=== PATIENT | male | born 1970 | race Caucasian/White ===

== ENCOUNTER → 2016-10-13 | Outpatient (CLI) | payer BC ==
[~2016-10-13] MED LIST: AMB5 PO; CMD2 PO; EFFSR75 PO; METF500T PO; OXYC-57 PO; RXC5 PO
== END | disposition home or self-care (01) ==
LOC: C.CTS 13:27
PROVIDERS: ATTEND Orthopaedic Surgery
DX: M19.011 Primary osteoarthritis, right shoulder (principal)

== ENCOUNTER 2016-11-19 08:26 | Inpatient (IN) | payer BC ==
[2016-10-13 11:26] VITALS: BMI 36.0
--- NOTE | 2016-10-13 11:57 | PAT Medication Instructions ---
Service Date October 13, 2016. Current Home Medication List No Active Prescriptions or Reported Meds Medication Instructions For Your Scheduled Surgery - Hold the following medications 48 hours prior to surgery: Metformin If you have any questions please call us at [phone] or [phone] or [phone]
--- NOTE | 2016-10-13 12:16 | DIAGNOSTIC IMAGING REPORT ---
TWO VIEW CHEST CLINICAL HISTORY: Preoperative examination. FINDINGS: PA and lateral chest radiographs are compared to study dated 02/09/2010. The cardiomediastinal silhouette is unremarkable. There are low lung volumes and bibasilar atelectasis. The lungs and pleural spaces are otherwise clear. There is no pneumothorax. The bony thorax appears intact. IMPRESSION: No active disease in the chest. Electronically signed by: Yassine Sutton M.D. 10/13/2016 12:15 PM Dictated Date/Time: 10/13/2016 12:14 PM
[2016-10-13 12:29] LABS: BASO % 0.8 %; BASO ABS # 0.06 K/uL (0-0.2); COMPLETE YES; EOS % 4.2 %; HEMATOCRIT 44.8 % (42-52); IG% 0.7 %; LYMPH % 28.6 %; LYMPH ABS # 2.03 K/uL (1.2-3.4); MEAN CELL VOLUME 85.5 fL (80-100); MEAN CORPUSCULAR HEMOGLOBIN 28.8 pg (25-34); MEAN CORPUSCULAR HGB CONC 33.7 g/dl (32-36); MEAN PLATELET VOLUME 10.5 fL (7.4-10.4); MONO % 11.4 %; NEUT % 54.3 %; PLATELET COUNT 227 K/uL (130-400); RED BLOOD COUNT 5.24 M/uL (4.7-6.1)
[2016-10-13 12:39] LABS: URINE APPEARANCE CLEAR (CLEAR); URINE BILIRUBIN NEG (NEG); URINE COLOR YELLOW; URINE NITRITE NEG (NEG); URINE SPECIFIC GRAVITY 1.023 (1.000-1.030); UROBILINOGEN NEG (NEG)
[2016-10-13 12:45] LABS: INR 0.9 (0.9-1.1); PROTHROMBIN TIME (PATIENT) 9.8 SECONDS (9.0-12.0)
[2016-10-13 12:56] LABS: MANUAL MICROSCOPIC REQUIRED? NO; REVIEW REQ? NO
[2016-10-13 12:57] LABS: CALCIUM 8.5 mg/dl (8.5-10.1); CREATININE 0.88 mg/dl (0.60-1.40); POTASSIUM 4.2 mmol/L (3.5-5.1)
[~2016-11-19] VITALS: Ht 177.8 cm; Wt 115.7 kg
[2016-11-19] VITALS (9 sets, daily range): BP systolic 130–148; BP diastolic 76–99; PULSE 60–80; TEMP 36.4–36.7; O2SAT 90–96; Ht 177.8 cm; Wt 115.7 kg
--- NOTE | 2016-11-19 06:42 | History & Physical Bridge Note ---
H&P Re-Evaluation Bridge Note: I have examined the patient, reviewed the History & Physical and in the interval since the performance of the History & Physical I have noted the following changes of clinical significance: No changes noted
--- NOTE | 2016-11-19 06:43 | History and Physical ---
History & Physical Date Nov 19, 2016. Chief Complaint Osteoarthritis Right Shoulder History of Present Illness The patient is a 46 year old male with complaints of chronic Right shoulder pain Additional History Hepatic Disease: No Endocrine Disorder: No Kidney Disease: No Hypertension: No Heart Disease: No Bleeding Tendencies: No Infectious Diseases: No Allergies Coded Allergies: Penicillins (Verified Allergy, Intermediate, HIVES, 10/13/16) Home Medications Scheduled Metformin Hcl (Glucophage), 500 MG PO BID Physical Examination Skin: warm/dry, no rash Eyes: normal inspection, EOMI, sclerae normal ENT: normal ENT inspection, pharynx normal Head: normocephalic, atraumatic Neck: supple, no adenopathy, trachea midline Respiratory/Chest: lungs clear, normal breath sounds, no respiratory distress Cardiovascular: regular rate, rhythm, no edema, no murmur Abdomen / GI: normal bowel sounds, non tender Back: normal inspection Extremities: normal inspection, normal range of motion Neurologic/Psych: no motor/sensory deficits, alert, normal reflexes, oriented x 3 Diagnosis Osteoarthritis R shoulder Plan of Treatment Right Total Shoulder
[~2016-11-19 08:26] MED LIST changes: +ACETAMINOPHEN 500 MG TAB PO SCH; -AMB5 PO; -CMD2 PO; -EFFSR75 PO; +FAMOTIDINE 20 MG TAB PO SCH; +GABAPENTIN 300 MG CAP PO SCH; +LACTATED RINGER'S 1000ML 1,000 ML IV SCH; +LACTATED RINGER'S 1000ML IV SCH; -OXYC-57 PO; +ROPIVACAINE 0.5% 5 MG/ML 30 ML VIAL ONE; +ROPIVACAINE 5MG/ML 30 ML 150 MG, BUPIVACAINE/EPINEPHR 0.5% MPF 30 ML, KETOROLAC TROMETH... INFIL SCH; -RXC5 PO; +VANCOMYCIN INJ 1,700 MG in SODIUM CHLORIDE 0.9% 500ML 500 ML IV SCH
[2016-11-19] MEDS ORDERED: ROCURONIUM BROMIDE 10 MG/ML 5 ML VIAL ONE (09:45)
[2016-11-19] MEDS ORDERED: ONDANSETRON INJ 2 MG/ML 2 ML VIAL ONE ×2 (09:45→11:20)
[2016-11-19] MEDS ORDERED: DEXAMETHASONE SOD INJ 4 MG/ML VIAL ONE (09:45)
[2016-11-19] MEDS ORDERED: LIDOCAINE HCL 2% 2 ML VIAL (20MG/ML) ONE (09:45)
[2016-11-19] MEDS ORDERED: SUCCINYLCHOLINE CHLORIDE 20 MG/ML 10 ML VIAL IV ONE (09:45)
[2016-11-19] MEDS ORDERED: PROPOFOL IV EMULSION 10 MG/ML 20 ML VIAL IV ONE (09:45)
[2016-11-19] MEDS ORDERED: MIDAZOLAM HCL 1 MG/ML 2ML VIAL ONE (09:46)
[2016-11-19] MEDS ORDERED: FENTANYL CITRATE INJ 50 MCG/1 ML 2 ML VIAL ONE ×3 (09:46→12:20)
[2016-11-19] MEDS ORDERED: BACITRACIN 50000 UNIT VIAL ONE (09:55)
[2016-11-19] MEDS ORDERED: ORTHO JOINT ANESTHETIC ONE (09:55)
[2016-11-19] MEDS: TRANEXAMIC ACID INJ 1,000 MG in SODIUM CHLORIDE 0.9% 100ML 100 ML IV SCH ×2 (10:30→15:58)
[2016-11-19] MEDS ORDERED: GLYCOPYRROLATE INJ 0.2 MG/ML VIAL ONE (11:15)
[2016-11-19] MEDS ORDERED: NEOSTIGMINE METHYLSULFATE 1 MG/ML 10ML VIAL ONE (11:15)
[2016-11-19] MEDS ORDERED: DexMEDEtomidine HCL 100 MCG/ML 2ML VIAL IV ONE (11:41)
[2016-11-19] MEDS ORDERED: EpHEDrine SULFATE 50MG/5ML SYR ONE (12:13)
--- NOTE | 2016-11-19 12:52 | [facility] Post Operative Brief Note ---
Immediate Operative Summary Operative Date Nov 19, 2016. Pre-Operative Diagnosis Osteoarthritis Right Shoulder Post-Operative Diagnosis Osteoarthritis Right Shoulder Procedure(s) Performed Right Total Shoulder ARthroplasty Cemented Surgeon Dr. Ashwin Crane Store Consultant Surgeon(s) Jamie Jin PA-C Estimated Blood Loss 350 mL Findings as above Specimens Permanent specimen A: Right humeral head Complication(s) None Disposition Recovery Room / PACU
[2016-11-19] MEDS ORDERED: MAGNESIUM HYDROXIDE SUSP 30 ML UDC PO PRN (13:00)
[2016-11-19] MEDS ORDERED: BISACODYL 10 MG SUPP PR PRN (13:00)
[2016-11-19] MEDS ORDERED: NALOXONE HCL 0.4 MG/1 ML VIAL/CARP IV PRN (13:00)
[2016-11-19] MEDS ORDERED: MoRPHine SULFATE 2 MG/ML CARP IV PRN (13:00)
[2016-11-19] MEDS ORDERED: METOCLOPRAMIDE HCL INJ 5 MG/ML 2 ML VIAL IV PRN (13:00)
[2016-11-19] MEDS ORDERED: OXYCODONE HCL IR 5 MG TAB (IMMEDIATE RELEASE) PO PRN (13:00)
[2016-11-19] MEDS ORDERED: SOD PHOSPHATE/SOD BIPHOSPHATE ENEMA 132 ML BTL PR PRN (13:00)
[2016-11-19] MEDS ORDERED: ONDANSETRON INJ 2 MG/ML 2 ML VIAL IV PRN (13:00)
[2016-11-19] MEDS ORDERED: NURSING VERBAL MED ORDER ONE (14:15)
--- NOTE | 2016-11-19 14:29 | DIAGNOSTIC IMAGING REPORT ---
RIGHT SHOULDER MIN 2 VIEWS ROUTINE CLINICAL HISTORY: Postoperative evaluation of the right shoulder. COMPARISON: CT of the right shoulder October 13, 2016. FINDINGS: Alignment of the right shoulder arthroplasty is anatomic. There is no periprosthetic fracture or unexpected radiopaque foreign body. Surgical drain is in place. IMPRESSION: Expected findings following right shoulder arthroplasty. Electronically signed by: Stone Guevara M.D. 11/19/2016 2:28 PM Dictated Date/Time: 11/19/2016 2:27 PM
--- NOTE | 2016-11-19 14:30 | Anesthesiology Progress Note ---
Anesthesia Post Op Note Date & Time Nov 19, 2016 at 14:28 Vital Signs Pain Intensity: 0 Vital Signs Past 12 Hours Date Time Temp Pulse Resp B/P (MAP) Pulse Ox O2 Delivery O2 Flow Rate FiO2 11/19/16 14:20 55 16 126/72 95 Oxymask 3 11/19/16 14:10 56 16 131/67 93 Oxymask 3 11/19/16 14:00 65 16 123/70 96 Oxymask 3 11/19/16 13:50 36.2 63 16 128/70 98 Oxymask 3 11/19/16 13:40 65 16 130/84 98 Oxymask 10 11/19/16 13:30 54 16 152/82 96 Oxymask 10 11/19/16 13:20 58 17 113/64 94 Oxymask 10 11/19/16 13:14 36.1 52 17 142/65 97 Oxymask 10 11/19/16 08:53 36.6 67 18 148/94 93 Room Air 11/19/16 08:42 36.6 67 18 148/94 Notes Mental Status: alert / awake / arousable, participated in evaluation Pt Amnestic to Procedure: Yes Nausea / Vomiting: adequately controlled Pain: adequately controlled Airway Patency, RR, SpO2: stable & adequate BP & HR: stable & adequate, see Notes Hydration State: stable & adequate Anesthetic Complications: no major complications apparent Patient noted to have several abnormal beats seen on monitor. 12 lead ECG failed to show any abnormality as he had gone back to sinus rhythm when it was taken. I called Dr. Day with cardiology and stated it was likely a blocked PAC. He stated he would fully consult on the patient and would alert attending surgeon Dr. Crane. Patient will be transferred to telemetry unit. He is conversant and without pain.
--- NOTE | 2016-11-19 14:37 | Cardiology Consultation ---
Cardiology Consultation Requesting Physician: Emily Attending Professional Healthcare Representative: Shay History of Present Illness Patient is a 46 year old male post-op R shoulder arthroplasty. Surgery unremarkable. In PACU, patient had reported dropped beats. Called by anesthesiologist. Strips reviewed showing blocked PAC's and a possible run of atrial bigeminy with block. No sign of AV zach block. Pt still sedated but comfortable. Denies complaints. Remainder of history obtained by review of medical records. History Past Medical History: osteoarthritis Past Surgical History: B/L knee arthroplasty Social History: Denies tobacco use. Social alcohol. No recreational drug use. Single Family History: non on file Past Medical/Surgical History Problem List: Medical Problems: (1) Osteoarthritis of shoulder Review Of Systems General: The patient denies weight change, night sweats, fever, chills. Head: The patient denies headache and prior head trauma. Cardiovascular: The patient denies chest pain or chest discomfort, dyspnea on exertion, palpitations, PND, orthopnea, edema, spontaneous shortness of breath, syncope and near syncope. Pulmonary: The patient denies cough, wheeze, pleurisy, hemoptysis, sputum, and excessive snoring. Gastrointestinal: The patient denies nausea, vomiting, diarrhea, constipation, bloating, hematemesis, hematochezia, and abdominal pain. Skin: The patient denies diaphoresis and rash. Musculoskeletal: The patient denies joint pain, joint swelling, myalgia, back pain, neck pain and prior injuries. Neurological: The patient denies prior stroke and seizures Allergies Coded Allergies: Penicillins (Verified Allergy, Intermediate, HIVES, 11/19/16) Medications Reported Home Medications Medications Dose Route/Sig Max Daily Dose Days Date Category Dose Instructions Glucophage (Metformin Hcl) 500 Mg Tab 500 Mg PO BID 10/13/16 Reported PATIENT HAS NOT STARTED YET OF 10/13/16 Physical Exam Vital Signs (Last 8hrs): Last 8 Hrs Date Time Temp Pulse Resp B/P (MAP) Pulse Ox O2 Delivery O2 Flow Rate FiO2 11/19/16 14:20 55 16 126/72 95 Oxymask 3 11/19/16 14:10 56 16 131/67 93 Oxymask 3 11/19/16 14:00 65 16 123/70 96 Oxymask 3 11/19/16 13:50 36.2 63 16 128/70 98 Oxymask 3 11/19/16 13:40 65 16 130/84 98 Oxymask 10 11/19/16 13:30 54 16 152/82 96 Oxymask 10 11/19/16 13:20 58 17 113/64 94 Oxymask 10 11/19/16 13:14 36.1 52 17 142/65 97 Oxymask 10 11/19/16 08:53 36.6 67 18 148/94 93 Room Air 11/19/16 08:42 36.6 67 18 148/94 General Appearance: Lethargic but appropriately responsive. NAD. Head: Normocephalic Atraumatic. Eyes: PERRLA, EOMI, conjunctiva and sclera clear Neck: Supple. No carotid bruits noted. No JVD. No HJD. Respiratory: Breath sounds clear to auscultation bilaterally. No w/r/r. Cardiovascular: Reg rate and rhythm. S1 and S2 noted. No murmurs, rubs, gallops. PMI non displace. Abdomen: Normal bowel sounds, soft nontender. no abdominal bruits. Extremities: No edema, no clubbing or cyanosis. distal pulses 2/4 bilaterally. Neuro: No focal deficits. Psychiatric: Normal affect. Data Last 24 Hours Test 11/19/16 09:08 Bedside Glucose 117 mg/dl Imaging: EKG: Telemetry reviewed: Assessment & Plan 1. Frequent atrial ectopy with block s/p general anesthesia likely benign, no ruperto AV zach block will check blood work and monitor on tele overnight no murmur on exam, can complete an echo as an outpatient no medications will likely d/c in AM with follow up with PCP for further eval
[2016-11-19] MEDS: KETOROLAC TROMETHAMINE 30 MG/ML VIAL IV. SCH ×2 (16:05→21:16)
[2016-11-19] MEDS: POTASSIUM CHLORIDE INJ 10 MEQ in SODIUM CHLORIDE 0.9% 1000ML 1,000 ML IV SCH (16:05)
[2016-11-19 16:12] LABS: BUN/CREATININE RATIO 14.4 (10-20); CALCIUM 8.4 mg/dl (8.5-10.1); CREATININE 0.88 mg/dl (0.60-1.40); POTASSIUM 4.1 mmol/L (3.5-5.1)
[2016-11-19] MEDS: ACETAMINOPHEN IV 1,000 MG in EMPTY BAG 0 ML IV SCH (16:59)
[2016-11-19] MEDS ORDERED: SENNA 8.6 MG TAB PO SCH (21:00)
[2016-11-19] MEDS ORDERED: VANCOMYCIN INJ 1,700 MG in SODIUM CHLORIDE 0.9% 500ML 500 ML IV SCH (21:00)
[2016-11-19] MEDS: DOCUSATE SODIUM 100 MG CAP PO SCH (21:16)
[2016-11-20] MEDS: ACETAMINOPHEN IV 1,000 MG in EMPTY BAG 0 ML IV SCH ×2 (01:14→08:06)
[2016-11-20 04:00] VITALS: BP 130/85; PULSE 70; TEMP 37.1; O2SAT 93
[2016-11-20] MEDS: KETOROLAC TROMETHAMINE 30 MG/ML VIAL IV. SCH (04:01)
[2016-11-20] MEDS: POTASSIUM CHLORIDE INJ 10 MEQ in SODIUM CHLORIDE 0.9% 1000ML 1,000 ML IV SCH (04:22)
[2016-11-20 06:42] LABS: HEMATOCRIT 38.3 % (42-52); MEAN CELL VOLUME 83.8 fL (80-100); MEAN CORPUSCULAR HEMOGLOBIN 28.2 pg (25-34); MEAN CORPUSCULAR HGB CONC 33.7 g/dl (32-36); MEAN PLATELET VOLUME 10.2 fL (7.4-10.4); PLATELET COUNT 178 K/uL (130-400); RED BLOOD COUNT 4.57 M/uL (4.7-6.1)
[2016-11-20 07:17] LABS: BUN/CREATININE RATIO 15.7 (10-20); CALCIUM 8.3 mg/dl (8.5-10.1); CREATININE 0.91 mg/dl (0.60-1.40); POTASSIUM 3.7 mmol/L (3.5-5.1)
[2016-11-20] MEDS ORDERED: METFORMIN HCL 500 MG TAB PO SCH (07:30)
[2016-11-20 07:36] VITALS: BP 133/90; PULSE 71; TEMP 37.2; O2SAT 91
[2016-11-20] MEDS: DOCUSATE SODIUM 100 MG CAP PO SCH (08:06)
[2016-11-20] MEDS ORDERED: PANTOprazole SOD 40 MG TAB PO SCH (09:00)
--- NOTE | 2016-11-20 09:04 | Orthopedic Progress Note ---
Orthopedic Progress Note Date of Service Nov 20, 2016. Subjective Post OP Day: 1 Reports: feeling well Additional Notes: Seen and examined at bedside. Did well with therapy, Shoulder is sore. Ready for discharge Objective dressing C/D/I, A&O x3 Date Time Temp Pulse Resp B/P (MAP) Pulse Ox O2 Delivery O2 Flow Rate FiO2 11/20/16 07:36 37.2 71 19 133/90 (104) 91 Room Air 11/20/16 04:00 Room Air 11/20/16 04:00 37.1 70 24 130/85 (100) 93 Room Air 11/20/16 00:00 Room Air 11/19/16 23:55 36.7 74 16 141/79 (99) 90 Room Air 11/19/16 20:00 Room Air 11/19/16 19:37 36.7 60 20 142/94 (110) 95 Nasal Cannula 2.0 11/19/16 18:12 76 137/93 (108) 95 Room Air 11/19/16 16:34 78 18 140/99 (113) 96 Nasal Cannula 2.0 11/19/16 15:32 36.6 63 18 130/82 95 Diffusion Mask 3.0 11/19/16 15:30 95 Diffusion Mask 3.0 11/19/16 15:00 61 18 128/77 95 Oxymask 3 11/19/16 14:45 56 18 133/74 95 Oxymask 3 11/19/16 14:30 36.3 61 18 129/78 95 Oxymask 3 11/19/16 14:20 55 16 126/72 95 Oxymask 3 11/19/16 14:10 56 16 131/67 93 Oxymask 3 11/19/16 14:00 65 16 123/70 96 Oxymask 3 11/19/16 13:50 36.2 63 16 128/70 98 Oxymask 3 11/19/16 13:40 65 16 130/84 98 Oxymask 10 11/19/16 13:30 54 16 152/82 96 Oxymask 10 11/19/16 13:20 58 17 113/64 94 Oxymask 10 11/19/16 13:14 36.1 52 17 142/65 97 Oxymask 10 Laboratory Results 24 Hours: Test 11/20/16 06:30 Hematocrit 38.3 % Hemoglobin 12.9 g/dL Assessment & Plan Assessment: S/P R TSA Plan: 1. Oxycodone for pain 2. D/C to home today
[2016-11-20] MEDS ORDERED: RXC5 PO (09:05)
--- NOTE | 2016-11-20 09:06 | Discharge Instructions ---
Discharge Instructions Date of Service Nov 20, 2016. Admission Reason for Admission: Right Shoulder Degenerative Joint Disease Discharge Discharge Diagnosis / Problem: Right Total Shoulder Discharge Goals Goal(s): Decrease discomfort, Improve function Activity Recommendations Activity Limitations: as noted below Shower/Bathe: may shower/bathe in 3 days . Instructions / Follow-Up Instructions / Follow-Up Activity and Therapy Recommendations: * Wear your sling for 3 weeks, unless otherwise instructed. You may remove your sling to shower and to dress, but otherwise, you should be in your sling at all times, including while sleeping * The shoulder replacement is very stable and you can use your hand while in the sling * Physical Therapy should start about 3-5 days from your day of surgery. Therapy will last about 8-12 weeks * You were shown a series of exercises in the hospital. Do these exercises daily including the exercises you were shown in physical therapy. Medications: * Narcotic You will likely be sent home from the hospital with a prescription for the narcotic pain medication that worked best throughout your stay. * Other medications may be prescribed for specific circumstances. If you have any questions, please call the office at . * Resume previous home medications unless otherwise instructed Dressing Care: You will likely have a Prineo dressing covering your incision. This looks like a glued on clear mesh dressing. Do not remove this dressing until you follow- up in my office in 2-3 weeks. Its pretty hard to peel it off. You may leave the Prineo dressing uncovered or cover it if it is draining a little bit. No further dressing care is required Showering: You may shower 3 days from the day of surgery. Leave the Prineo dressing intact and let the soapy shower water run over it. Do not scrub or soak the dressing or the incision. Things To Watch For: * Drainage from the incision site that occurs more than one week after your surgery. * Increased redness at the incision site. * Fever above 102 degrees Fahrenheit. * Unusual chest pain or shortness of breath. * Call [facility] at with any of the above problems Follow-Up Visit: Follow-up with Dr. Crane 2-3 weeks after your day of surgery. An appointment was probably scheduled when you signed-up for surgery in the office. If you have any questions call Office Instructions: More detailed instructions as well as Frequently Asked Questions were provided in a folder by our office when you signed-up for surgery. Please review these instructions when you get home. If you have any further questions or concerns, please feel free to call the office at [phone] Current Hospital Diet Patient's current hospital diet: Diabetes Type 2 Diet Discharge Diet Recommended Diet: Diabetes Type 2 Diet Procedures Procedures Performed: Right Total Shoulder ARthroplasty Cemented Pending Studies Studies pending at discharge: no Medical Emergencies . Who to Call and When: Medical Emergencies: If at any time you feel your situation is an emergency, please call 911 immediately. . Non-Emergent Contact Non-Emergency issues call your: Surgeon Call Non-Emergent contact if: wound has increased drainage, wound has increased redness . "Provider Documentation" section prepared by Calos Crane. . VTE Core Measure Inpt VTE Proph given/why not?: Treatment not indicated
[2016-11-20 09:56] VITALS: BP 133/90; PULSE 71; TEMP 37.2; O2SAT 91
--- NOTE | 2016-12-01 12:56 | OPERATIVE REPORT ---
PREOPERATIVE DIAGNOSIS: Primary osteoarthritis to the right shoulder POSTOPERATIVE DIAGNOSIS: Same. PROCEDURE: Right total shoulder arthroplasty. SURGEON: Dr. Calos Crane. MANAGER CODING: Baron Jin PA-C whose assistance was necessary for positioning of the arm and help with instrumentation. ANESTHESIA: General with right interscalene nerve block. COMPLICATIONS: None. CONDITION: Stable to PACU. IMPLANTS USED: Biomet Comprehensive right total shoulder arthroplasty system with a size medium glenoid with a Regenerex Peg, a size 17 mini press fit stem and a 50 x 21 mm eccentric humeral head. The glenoid was cemented with Palacos G cement. INDICATIONS: Yousuf is a pleasant 46-year-old male who presented to my office with chronic right shoulder pain. X-rays and clinical examination were diagnostic for primary osteoarthritis of the right shoulder. After failing conservative treatment he elected to undergo a right total shoulder arthroplasty. On November 19, 2016 he arrived at [facility] for the above procedure. He was seen in the preoperative holding area and the operative extremity was identified and signed. He was then given a preoperative antibiotic and a right interscalene nerve block. He was taken back to the operating room and laid on the table in supine position and put under general anesthesia. He was then put into the beach chair position. The right shoulder was prepped and draped in sterile fashion and a timeout was done. The patient and operative extremity were properly identified. A deltopectoral approach was used. Dissection was taken down through the fascia and the anterior shoulder was exposed. The long head of the biceps tendon was tenodesed to the upper border of the pec major and the subscapularis was tenotomized off the lesser tuberosity with a centimeter of cuff tissue remaining. The proximal humerus was then exposed. A reamer was sent down the center of the humeral canal. Sequential reaming up to a size 17 reamer was done. Off that reamer a proximal humeral resection guide was placed and the proximal humerus was resected at 135 degrees of inclination and 30 degrees of retroversion. Time was then spent removing inferior osteophytes. The glenoid was then exposed. Time was spent doing an anterior capsular labral release but the posterior labrum was left intact. The Biomet signature guide was then snapped onto the anterior aspect of the glenoid. A guide pin was then placed in the total shoulder arthroplasty hole. The glenoid was then eccentrically reamed. The central boss was then reamed followed by the three peripheral peg holes. A trial medium glenoid was used and seemed to be of good fit. The final size medium glenoid was then cemented in place with Palacos G cement. The proximal humerus was once again exposed. Sequential broaching up to a size 17 broach was done. A trial 50 x 21 mm eccentric head was used. The shoulder was brought through a full range of motion and felt to be stable. The trials were removed. The final size 17 mini stem was then impacted into place and a size 50 x 21 eccentric head was placed on the humeral stem. The shoulder was reduced and brought through a full range of motion. The surrounding soft tissues were then injected with 100 cc of an orthopedic pain control cocktail. The joint was then irrigated with 3 liters of normal saline solution and Bacitracin. The subscapularis was then tenodesed back to the lesser tuberosity with transosseous fibers wires and [id number] sutures. Two sutures were placed in the lateral rotator interval. The axillary nerve was then palpated. The wound was once again irrigated and a drain was placed. The skin was closed with 3-0 Vicryl and a 3-0 V-Loc suture and Prineo dressing. He was then placed in a soft dressing and regular arm sling. He was then transferred to a [facility] and taken to the post-anesthesia care unit in stable condition. He tolerated the procedure well.
== END 2016-11-20 11:35 | disposition home or self-care (01) | DRG 483 ==
LOC: C.ACU 08:26 → C.2E 12:52 → CANRESERV 13:49 → ENRESERV 13:49 → EDBEDREQSVC 14:21 → EDBEDREQ 14:21 → CMPBEDREQ 14:22 → CANBEDREQ 14:28 → ENRESERV 14:44 → CANRESERV 14:44 → ENRESERV 14:49
PROVIDERS: ADMIT Orthopaedic Surgery; ATTEND Orthopaedic Surgery
PROC: 0RRJ00Z Replacement of Right Shoulder Joint with Reverse Ball and Socket Synthetic Substitute, Open Approach (ICD-10-PCS; principal; 2016-11-19 11:00)
DX: M19.011 Primary osteoarthritis, right shoulder (principal)

== ENCOUNTER 2017-08-06 07:32 | Inpatient (IN) | payer BC, OTHER ==
[~2017-08-06] VITALS: Ht 177.8 cm; Wt 98.1 kg
[2017-08-06] VITALS (9 sets, daily range): BP systolic 130–165; BP diastolic 76–104; PULSE 60–77; TEMP 36.5–37.1; O2SAT 92–100; Ht 177.8 cm; Wt 98.1 kg
[~2017-08-06 07:32] MED LIST changes: -ACETAMINOPHEN 500 MG TAB PO SCH; -FAMOTIDINE 20 MG TAB PO SCH; -GABAPENTIN 300 MG CAP PO SCH; -LACTATED RINGER'S 1000ML 1,000 ML IV SCH; -LACTATED RINGER'S 1000ML IV SCH; -ROPIVACAINE 0.5% 5 MG/ML 30 ML VIAL ONE; -ROPIVACAINE 5MG/ML 30 ML 150 MG, BUPIVACAINE/EPINEPHR 0.5% MPF 30 ML, KETOROLAC TROMETH... INFIL SCH; +RXC5 PO; -VANCOMYCIN INJ 1,700 MG in SODIUM CHLORIDE 0.9% 500ML 500 ML IV SCH
[2017-08-06] MEDS ORDERED: KETOROLAC TROMETHAMINE 30 MG/ML VIAL IV STA (07:39)
[2017-08-06] MEDS ORDERED: SODIUM CHLORIDE 0.9% 1000ML 1,000 ML IV STA (07:39)
[2017-08-06] MEDS ORDERED: ONDANSETRON INJ 2 MG/ML 2 ML VIAL IV STA (07:39)
--- NOTE | 2017-08-06 07:46 | EMERGENCY ROOM VISIT NOTE ---
History First contact with patient: 07:36 Chief Complaint: KIDNEY STONE Stated Complaint: POSSIBLE KIDNEY STONE History of Present Illness The patient is a 46 year old male who presents to the Emergency Room via private vehicle accompanied by female with complaints of "kidney stone". The patient states that he has a history of stones. He states that this past Tuesday he began with left flank pain. He was then seen at [facility]. He was diagnosed with a 5 mm stone per patient. He notes he was given Toradol at that time which alleviated his pain. He notes that he was discharged home with the expectation that he revealed to pass the stone. He states that unfortunately the pain has significantly worsened. Around 3 AM this morning he took Ledbetter and ibuprofen. These were of minimal relief. He rates the pain as a 10/10. It is in the left flank. It feels similar to previous stones. Review of Systems A complete 10-point Review of Systems was discussed with the patient, with pertinent positives and negatives listed in the History of Present Illness. All remaining Review of Systems questions can be considered negative unless otherwise specified. Past Medical/Surgical History Medical Problems: (1) Osteoarthritis of shoulder Social History Smoking Status: Former Smoker Current/Historical Medications Scheduled Metformin Hcl (Glucophage), 500 MG PO BID Scheduled PRN Oxycodone HCl (Oxycodone HCl), 5-10 MG PO Q4H PRN for Pain Physical Exam Vital Signs Date Time Temp Pulse Resp B/P (MAP) Pulse Ox O2 Delivery O2 Flow Rate FiO2 08/06/17 08:19 69 24 160/98 100 08/06/17 07:48 94 08/06/17 07:38 37.0 106 18 198/136 97 Room Air Physical Exam VITAL SIGNS - Vital signs and nursing notes were reviewed. Stable. Tachycardic and hypertensive. GENERAL -46-year-old male appearing his stated age who is in no acute distress but does appear to be in pain, and is pacing throughout the exam room. Communicates well with provider and answers questions appropriately. SKIN - Without rashes. No petechial rashes. HEAD - NC/AT. EYES - PERRL with EOMI bilaterally. Sclera anicteric. EARS - No deformities of external structures noted on gross examination bilaterally. NOSE - Midline and without cyanosis. No epistaxis or purulent drainage noted. MOUTH/OROPHARYNX - Without perioral cyanosis. LUNGS - Chest wall symmetric without accessory muscle use, intercostals retractions, or central cyanosis. Normal vesicular breath sounds CTA B/L. No wheezes, rales, or rhonchi appreciated. CARDIAC - RRR with S1/S2. No murmur, rubs, or gallops appreciated. ABDOMEN - Abdominal contour normal without pulsations or visible masses. BS normoactive all four quadrants. No tenderness, palpable masses, hepatosplenomegaly, or ascites noted. Left CVA tenderness noted. EXTREMITIES - No clubbing or peripheral cyanosis. No pretibial edema present. NEUROLOGIC - Cranial nerves II through XII grossly intact. PSYCH - A&O, and cooperates fully with examiner. Pt is very pleasant and interacts well with examiner. Medical Decision & Procedures ER Provider Diagnostic Interpretation: KUB CLINICAL HISTORY: L flank pain, known 5mm stone COMPARISON STUDY: No previous studies for comparison. FINDINGS: Nonobstructive bowel pattern. Bilateral pelvic calcifications the bulk of which are most likely vascular. Renal shadows are obscured by overlying bowel content. IMPRESSION: Multiple pelvic calcifications bilaterally. I cannot exclude a distal ureteral calculus, although the bulk are most likely vascular. Nonobstructive bowel pattern The above report was generated using voice recognition software. It may contain grammatical, syntax or spelling errors. Electronically signed by: Jevon Granados M.D. 08/06/2017 8:04 AM Dictated Date/Time: 08/06/2017 8:03 AM (RENAL)RETROPERITON COMP HISTORY: Pain L flank pain, known 5mm stone COMPARISON: None. FINDINGS: Right kidney: Maximum dimension 13.7 cm. No evidence for hydronephrosis. Normal corticomedullary differentiation and cortical thickness. Left kidney: Mild left renal hydronephrosis. Trace left renal perinephric fluid. Possible nonobstructing calcification upper pole. Normal corticomedullary differentiation and cortical thickness. Bladder: No bladder wall thickening. The right ureteral jets were identified. IMPRESSION: 1. Mild left hydroureteronephrosis with a trace amount of perinephric fluid. 2. Nonobstructing upper pole renal calcification. 3. Normal right kidney. The above report was generated using voice recognition software. It may contain grammatical, syntax or spelling errors. Electronically signed by: Jevon Granados M.D. 08/06/2017 8:22 AM Dictated Date/Time: 08/06/2017 8:20 AM ABD/PELVIS WITHOUT FOR STONE CT DOSE: 1845.33 mGy.cm HISTORY: Pain L flank pain TECHNIQUE: Multiaxial CT images of the abdomen and pelvis were performed without the use of intravenous and oral contrast according to the standard department stone protocol. A dose lowering technique was utilized adhering to the principles of ALARA. COMPARISON STUDY: None. FINDINGS: Minimal dependent basilar atelectasis. Configuration of liver is unremarkable. Gallbladder is negative for distention. Right kidney is unremarkable. Nonobstructing cortical 3 mm calcification mid pole. Left kidney shows moderate hydroureteronephrosis. There is perinephric as well as periureteral infiltrative change. 5 mm obstructing calculus distal left ureter approximately the mid left soft tissue pelvic level. Bladder is midline. Bilateral fat-containing inguinal hernias. Chronic sigmoid diverticulosis. No evidence for acute diverticulitis. Normal appendix. Left kidney IMPRESSION: 1. Obstructing 5 mm distal left ureteral calculus. 2. Moderate left hydroureteronephrosis with moderate perinephric and periureteral infiltrative change. 3. Chronic sigmoid diverticulosis. 4. Nonobstructing mid pole right renal calcification. 5. Bilateral fat-containing inguinal hernias. The above report was generated using voice recognition software. It may contain grammatical, syntax or spelling errors. Electronically signed by: Jevon Granados M.D. 08/06/2017 9:04 AM Dictated Date/Time: 08/06/2017 8:59 AM Laboratory Results 08/06/17 07:42 Red Blood Count 5.62, Mean Corpuscular Volume 82.6, Mean Corpuscular Hemoglobin 29.9, Mean Corpuscular Hemoglobin Concent 36.2, Mean Platelet Volume 10.2, Neutrophils (%) (Auto) 80.0, Lymphocytes (%) (Auto) 9.3, Monocytes (%) (Auto) 9.3, Eosinophils (%) (Auto) 0.8, Basophils (%) (Auto) 0.1, Neutrophils # (Auto) 11.32, Lymphocytes # (Auto) 1.32, Monocytes # (Auto) 1.32, Eosinophils # (Auto) 0.12, Basophils # (Auto) 0.02 08/06/17 07:42 Test 08/06/17 07:42 08/06/17 08:34 White Blood Count 14.17 K/uL (4.8-10.8) Red Blood Count 5.62 M/uL (4.7-6.1) Hemoglobin 16.8 g/dL (14.0-18.0) Hematocrit 46.4 % (42-52) Mean Corpuscular Volume 82.6 fL (80-100) Mean Corpuscular Hemoglobin 29.9 pg (25-34) Mean Corpuscular Hemoglobin Concent 36.2 g/dl (32-36) Platelet Count 214 K/uL (130-400) Mean Platelet Volume 10.2 fL (7.4-10.4) Neutrophils (%) (Auto) 80.0 % Lymphocytes (%) (Auto) 9.3 % Monocytes (%) (Auto) 9.3 % Eosinophils (%) (Auto) 0.8 % Basophils (%) (Auto) 0.1 % Neutrophils # (Auto) 11.32 K/uL (1.4-6.5) Lymphocytes # (Auto) 1.32 K/uL (1.2-3.4) Monocytes # (Auto) 1.32 K/uL (0.11-0.59) Eosinophils # (Auto) 0.12 K/uL (0-0.5) Basophils # (Auto) 0.02 K/uL (0-0.2) RDW Standard Deviation 39.1 fL (36.4-46.3) RDW Coefficient of Variation 13.0 % (11.5-14.5) Immature Granulocyte % (Auto) 0.5 % Immature Granulocyte # (Auto) 0.07 K/uL (0.00-0.02) Prothrombin Time 9.8 SECONDS (9.0-12.0) Prothromb Time International Ratio 0.9 (0.9-1.1) Activated Partial Thromboplast Time 25.8 SECONDS (21.0-31.0) Partial Thromboplastin Ratio 1.0 Anion Gap 10.0 mmol/L (3-11) Est Creatinine Clear Calc Drug Dose 64.3 ml/min Estimated GFR () 56.1 Estimated GFR (Non- 48.4 BUN/Creatinine Ratio 8.8 (10-20) Calcium Level 9.1 mg/dl (8.5-10.1) Magnesium Level 2.2 mg/dl (1.8-2.4) Total Bilirubin 1.1 mg/dl (0.2-1) Aspartate Amino Transf (AST/SGOT) 20 U/L (15-37) Alanine Aminotransferase (ALT/SGPT) 41 U/L (12-78) Alkaline Phosphatase 106 U/L (45-117) Total Protein 8.0 gm/dl (6.4-8.2) Albumin 4.1 gm/dl (3.4-5.0) Globulin 3.9 gm/dl (2.5-4.0) Albumin/Globulin Ratio 1.1 (0.9-2) Urine Color YELLOW Urine Appearance CLEAR (CLEAR) Urine pH 5.0 (4.5-7.5) Urine Specific [place] 1.010 (1.000-1.030) Urine Protein TRACE (NEG) Urine Glucose (UA) 1+ (NEG) Urine Ketones TRACE (NEG) Urine Occult Blood 2+ (NEG) Urine Nitrite NEG (NEG) Urine Bilirubin NEG (NEG) Urine Urobilinogen NEG (NEG) Urine Leukocyte Esterase NEG (NEG) Urine WBC (Auto) 1-5 /hpf (0-5) Urine RBC (Auto) 0-4 /hpf (0-4) Urine Hyaline Casts (Auto) 0 /lpf (0-5) Urine Epithelial Cells (Auto) 0-5 /lpf (0-5) Urine Bacteria (Auto) NEG (NEG) Medications Administered Medications (Trade) Dose Ordered Sig/Charly Route Start Time Stop Time Status Last Admin Dose Admin Ketorolac Tromethamine (Toradol Inj) 30 mg NOW STAT IV 08/06/17 07:39 08/06/17 07:42 DC 08/06/17 07:46 30 MG Sodium Chloride 1,000 ml @ 999 mls/hr Q1H1M STAT IV 08/06/17 07:39 08/06/17 08:39 DC 08/06/17 07:44 999 MLS/HR Ondansetron HCl (Zofran Inj) 4 mg NOW STAT IV 08/06/17 07:39 08/06/17 07:42 DC 08/06/17 07:44 4 MG Morphine Sulfate (MoRPHine SULFATE INJ) 4 mg NOW STAT IV 08/06/17 08:24 08/06/17 08:25 DC 08/06/17 08:42 4 MG Medical Decision Patient was seen and evaluated as above. He presents to us with left flank pain. He has a history of stones. Review was performed of nursing notes and vital signs. After obtaining a thorough history and physical examination the above work up was performed. KUB and ultrasound were obtained. Elevated white count. Elevated renal function. He was given fluids, Zofran and Toradol. Then morphine for pain. Decision was made to obtain CT scan secondary to his presentation. There is a 5 mm stone. Because the patient's pain, the hydronephrosis and try to pass us in the outpatient setting without success I do believe that inpatient management is warranted. I then discussed the case with the hospitalist. They agreed to admit the patient. The patient was educated upon management, had questions answered prior to discharge, and was discharged home in good condition. Case was discussed with the attending physician. In the evaluation and treatment of this patient the following differential diagnoses were entertained: Renal calculi, pyelonephritis, hernia, testicular torsion, among others. Impression Primary Impression: Ureteral calculus Additional Impression: Left flank pain Departure Information Referrals Trev Ann M.D. (PCP) Patient Instructions My [facility] Problem Qualifiers
[2017-08-06 07:53] LABS: BASO % 0.1 %; BASO ABS # 0.02 K/uL (0-0.2); EOS % 0.8 %; EOS ABS # 0.12 K/uL (0-0.5); HEMATOCRIT 46.4 % (42-52); HEMOGLOBIN 16.8 g/dL (14.0-18.0); IG# 0.07 K/uL (0.00-0.02); LYMPH % 9.3 %; LYMPH ABS # 1.32 K/uL (1.2-3.4); MEAN CELL VOLUME 82.6 fL (80-100); MEAN CORPUSCULAR HEMOGLOBIN 29.9 pg (25-34); MEAN CORPUSCULAR HGB CONC 36.2 g/dl (32-36); MEAN PLATELET VOLUME 10.2 fL (7.4-10.4); MONO % 9.3 %; MONO ABS # 1.32 K/uL (0.11-0.59); NEUT ABS # 11.32 K/uL (1.4-6.5); PLATELET COUNT 214 K/uL (130-400); RED CELL DISTRIBUTION WIDTH SD 39.1 fL (36.4-46.3); WHITE BLOOD COUNT 14.17 K/uL (4.8-10.8)
[2017-08-06 08:01] LABS: INR 0.9 (0.9-1.1); PTT PATIENT 25.8 SECONDS (21.0-31.0)
--- NOTE | 2017-08-06 08:06 | DIAGNOSTIC IMAGING REPORT ---
KUB CLINICAL HISTORY: L flank pain, known 5mm stone COMPARISON STUDY: No previous studies for comparison. FINDINGS: Nonobstructive bowel pattern. Bilateral pelvic calcifications the bulk of which are most likely vascular. Renal shadows are obscured by overlying bowel content. IMPRESSION: Multiple pelvic calcifications bilaterally. I cannot exclude a distal ureteral calculus, although the bulk are most likely vascular. Nonobstructive bowel pattern The above report was generated using voice recognition software. It may contain grammatical, syntax or spelling errors. Electronically signed by: Jevon Granados M.D. 08/06/2017 8:04 AM Dictated Date/Time: 08/06/2017 8:03 AM
[2017-08-06 08:10] LABS: ALBUMIN 4.1 gm/dl (3.4-5.0); CALCIUM 9.1 mg/dl (8.5-10.1); CREATININE 1.65 mg/dl (0.60-1.40); POTASSIUM 3.9 mmol/L (3.5-5.1)
--- NOTE | 2017-08-06 08:23 | DIAGNOSTIC IMAGING REPORT ---
(RENAL)RETROPERITON COMP HISTORY: Pain L flank pain, known 5mm stone COMPARISON: None. FINDINGS: Right kidney: Maximum dimension 13.7 cm. No evidence for hydronephrosis. Normal corticomedullary differentiation and cortical thickness. Left kidney: Mild left renal hydronephrosis. Trace left renal perinephric fluid. Possible nonobstructing calcification upper pole. Normal corticomedullary differentiation and cortical thickness. Bladder: No bladder wall thickening. The right ureteral jets were identified. IMPRESSION: 1. Mild left hydroureteronephrosis with a trace amount of perinephric fluid. 2. Nonobstructing upper pole renal calcification. 3. Normal right kidney. The above report was generated using voice recognition software. It may contain grammatical, syntax or spelling errors. Electronically signed by: Jevon Granados M.D. 08/06/2017 8:22 AM Dictated Date/Time: 08/06/2017 8:20 AM
[2017-08-06] MEDS ORDERED: MoRPHine SULFATE 4 MG/ML 1 ML CARP\\VIAL IV STA (08:24)
--- NOTE | 2017-08-06 09:05 | DIAGNOSTIC IMAGING REPORT ---
ABD/PELVIS WITHOUT FOR STONE CT DOSE: 1845.33 mGy.cm HISTORY: Pain L flank pain TECHNIQUE: Multiaxial CT images of the abdomen and pelvis were performed without the use of intravenous and oral contrast according to the standard department stone protocol. A dose lowering technique was utilized adhering to the principles of ALARA. COMPARISON STUDY: None. FINDINGS: Minimal dependent basilar atelectasis. Configuration of liver is unremarkable. Gallbladder is negative for distention. Right kidney is unremarkable. Nonobstructing cortical 3 mm calcification mid pole. Left kidney shows moderate hydroureteronephrosis. There is perinephric as well as periureteral infiltrative change. 5 mm obstructing calculus distal left ureter approximately the mid left soft tissue pelvic level. Bladder is midline. Bilateral fat-containing inguinal hernias. Chronic sigmoid diverticulosis. No evidence for acute diverticulitis. Normal appendix. Left kidney IMPRESSION: 1. Obstructing 5 mm distal left ureteral calculus. 2. Moderate left hydroureteronephrosis with moderate perinephric and periureteral infiltrative change. 3. Chronic sigmoid diverticulosis. 4. Nonobstructing mid pole right renal calcification. 5. Bilateral fat-containing inguinal hernias. The above report was generated using voice recognition software. It may contain grammatical, syntax or spelling errors. Electronically signed by: Jevon Granados M.D. 08/06/2017 9:04 AM Dictated Date/Time: 08/06/2017 8:59 AM
[2017-08-06] MEDS ORDERED: IBUP600T44 PO (09:54)
[2017-08-06] MEDS ORDERED: TAMS0.4C38 PO (09:54)
[2017-08-06] MEDS ORDERED: ONDA4TAB46 PO (09:54)
[2017-08-06] MEDS ORDERED: HYDR-3419 PO (09:54)
[2017-08-06] MEDS ORDERED: MoRPHine SULFATE 4 MG/ML 1 ML CARP\\VIAL IV PRN (10:00)
[2017-08-06] MEDS ORDERED: ONDANSETRON INJ 2 MG/ML 2 ML VIAL IV PRN ×2 (10:00→13:30)
[2017-08-06] MEDS ORDERED: HYDROCODONE/ACETAMIN 5/325MG TAB PO PRN (10:00)
[2017-08-06] MEDS ORDERED: ACETAMINOPHEN 325 MG TAB PO PRN (10:00)
[2017-08-06] MEDS ORDERED: IV FLUIDS COMPLETED PRN (10:15)
--- NOTE | 2017-08-06 11:14 | HISTORY & PHYSICAL EXAMINATION ---
DATE OF ADMISSION: 08/06/2017 CHIEF COMPLAINT: Left flank pain. HISTORY OF PRESENT ILLNESS: A 46-year-old male with past medical history significant for hypertriglyceridemia, history of kidney stones, presents with left flank pain going on since last Tuesday. The patient says initially the pain lasted for 1 day and resolved, but it came back on when he went to [place] [facility] where he was told that he has a 5 mm left ureteral stone and was told that it can pass on its own and was discharged on pain medications, but he did not pass the stone and the pain was getting worse, starting in left flank, radiating to his groins, very severe , also with nausea, vomiting and some blood in the urine. Also Feeling cold but denies any fevers.So he came to the ER today and CAT scan showed 5 mm obstructing stone in left distal ureter with left hydronephrosis. The patient is hemodynamically stable. Denies any headaches, no dizziness, no blurred vision, no earache. No sore throat or difficulty swallowing. No chest pain, no cough. He had hiccups but they are gone now. No shortness of breath. No diarrhea or constipation. No swelling in the legs. No skin rash. ALLERGIES: TO PENICILLINS. PAST MEDICAL HISTORY: As mentioned above. PAST SURGICAL HISTORY: Left shoulder surgery and bilateral knee replacements. MEDICATIONS: Not taking any medications at this time. FAMILY HISTORY: Significant for heart disease. SOCIAL HISTORY: Never smoked. Alcohol occasional. No drug use. REVIEW OF SYMPTOMS: As per HPI. Rest of review of symptoms negative. PHYSICAL EXAMINATION: GENERAL: The patient is of moderate build, not in distress. VITAL SIGNS: Temperature 37, pulse 69, respiratory rate 24, blood pressure 160/98, oxygen 100% room air. HEENT: No pallor, no icterus. Pupils equal, round and react to light. NECK: No JVD, no neck masses, no carotid bruit. CARDIOVASCULAR: S1, S2 heard. Regular rate and rhythm. No murmur, no gallop. RESPIRATORY: Normal AP diameter. No accessory muscle use. No wheezing, no crackles. ABDOMEN: Soft. Bowel sounds present. Diffuse tenderness, more in the left lower quadrant. No distention. No CVA tenderness. CENTRAL NERVOUS SYSTEM: Cranial nerves II-XII grossly intact. Nonfocal. EXTREMITIES: No edema, no erythema. LABORATORY DATA: WBC 14, hemoglobin 16.8, hematocrit 46.4, platelets 214. Sodium 134, potassium 3.9, chloride 104, CO2 of 20, BUN 15, creatinine 1.6, serum glucose 146, calcium 9.1, magnesium 2.2, total bilirubin 1.1, AST 20, ALT 40, alkaline phosphatase 106. PT 9.8, INR 0.9, APTT 25.8. Urinalysis positive for ketones and occult blood. IMAGING: Renal ultrasound, mild left hydronephrosis with trace amount of perinephric fluid, nonobstructing upper pole renal calcification, normal right kidney. KUB, multiple pelvic calcifications bilaterally. Cannot exclude a distal ureter calculus. CT scan showed obstructing 5 mm distal left ureteral calculus, moderate left hydroureteronephrosis, moderate perinephric and perirectal infiltrative change, chronic sigmoid diverticulosis, nonobstructing mid pole right renal calcification, bilateral fat containing inguinal hernias. ASSESSMENT AND PLAN: This 46-year-old male presents with left obstructing ureteral calculus. 1. Left obstructing distal ureteral calculus with moderate perinephric infiltrative change with leukocytosis and renal failure. Not able to pass as outpatient. On Flomax. We will place him on fluids, pain control, antiemetics and n.p.o. for now. Consulted urology and notified.Monitor on medical floor. 2. Acute renal failure secondary to above, on fluids. We will follow the labs. 3. History of hypertriglyceridemia. Follow lipid profile. Not on any medications. 4. Deep venous thrombosis prophylaxis, SCDs for now. 5. Disposition: Admit to medical floor. Expect to discharge home and follow up with his family doctor and urology. RYAN
[2017-08-06] MEDS: SODIUM CHLORIDE 0.9% 1000ML 1,000 ML IV SCH ×3 (11:21→23:03)
[2017-08-06] MEDS ORDERED: CIPROFLOXACIN 400MG / D5W IV ONE (11:30)
[2017-08-06] MEDS ORDERED: CIPROFLOXACIN CONSULT ACTIVE PRN (11:45)
--- NOTE | 2017-08-06 12:50 | Urology Consultation ---
History General Date of Service: Aug 06, 2017. Primary Care Physician: Trev Ann M.D. History of Present Illness 46 y/o male with history of stones in past and surgery for this in the past.He had intermittent left flank pain since Tuesday that was severe and he went to [place] [facility] was DXed w a stone on the left and sent home with meds . Pain persisted and he presented here w CT showing 6 to7 mm stone in distal L ureter above the UVJ. No fever . Spent 20 minutews reviewing options including ureteroscopy today or in am . Watching overnite and seeing if stone passes or pain resolves . Discussed odds stone will pass possible side effects w or w/o ureteroscopy including stent and stent discomfort and possibility a stent alone may be placed w later intervention Imaging Imaging: CT, KUB, Ultrasound Laboratory Labs were reviewed and are within normal limits unless listed below. Labs are available in the chart and at [facility] Problem List Medical Problems: (1) Left flank pain Status: Acute (2) Ureteral calculus Status: Acute Past History no pertinent history Past Surgical History: shoulder replacement, TKR, ureteral stent Social History Hx Tobacco Use In Past Year?: No (SMOKED 1 PPD X 4-5 YRS-QUIT EARLY ') Alcohol: occasional Immunizations History of Influenza Vaccine: No History of Tetanus Vaccine?: No History of Pneumococcal: No History of Hepatitis B Vaccine: No History of MDRO No Allergies Coded Allergies: Penicillins (Verified Allergy, Intermediate, HIVES, 08/06/17) Medications Home Medications: Home Meds and Scripts Medications Dose Route/Sig Max Daily Dose Days Date Category Zofran (Ondansetron HCl) 4 Mg Tab 4 Mg PO DAILY PRN 08/06/17 Reported Motrin (Ibuprofen) 600 Mg Tab 600 Mg PO Q8 PRN 08/06/17 Reported Vicodin (5MG/300MG) (Hydrocodon/Acetaminophen 5MG/300MG) 1 Tab Tab 1 Tab PO Q4H PRN 08/06/17 Reported Flomax (Tamsulosin Hcl) 0.4 Mg Cap 0.4 Mg PO DAILY 08/06/17 Reported Inpatient Medications: Current Inpatient Medications Medications (Trade) Dose Ordered Sig/Charly Route Start Time Stop Time Status Last Admin Dose Admin Acetaminophen (Tylenol Tab) 650 mg Q4H PRN PO 08/06/17 10:00 09/05/17 09:59 Ondansetron HCl (Zofran Inj) 4 mg Q6H PRN IV 08/06/17 10:00 09/05/17 09:59 Tamsulosin HCl (Flomax Cap) 0.4 mg DAILY PO 08/07/17 09:00 09/06/17 08:59 Acetaminophen/ Hydrocodone Bitart ([place] 5/325 Tab) 1 tab Q4H PRN PO 08/06/17 10:00 09/05/17 09:59 Morphine Sulfate (MoRPHine SULFATE INJ) 3 mg Q3HWA PRN IV 08/06/17 10:00 08/20/17 09:59 Sodium Chloride 1,000 ml @ 150 mls/hr Q6H40M IV 08/06/17 11:00 09/05/17 10:59 08/06/17 11:21 150 MLS/HR Ciprofloxacin/ Dextrose 400 mg/ Prmx 200 ml @ 100 mls/hr Q12 IV 08/06/17 21:00 08/16/17 20:59 Miscellaneous (Iv Fluids Completed) 1 ea PRN PRN N/A 08/06/17 10:15 08/06/18 10:14 Ciprofloxacin/ Dextrose 400 mg/ Prmx 200 ml @ 100 mls/hr NOW ONCE IV 08/06/17 11:30 08/06/17 13:29 08/06/17 11:21 100 MLS/HR Ciprofloxacin (Consult) 1 ea UD PRN N/A 08/06/17 11:45 09/05/17 11:44 Review of Systems Review of Systems Constitutional: No see HPI, No fever, No chills, No frequent headaches, No weight loss, No problem reported Eyes: No see HPI, No blurred vision, No double vision, No eye pain, No loss of night vision, No problem reported Neurological: No see HPI, No dizzy, No passing out, No numbness/tingling, No seizures, No problem reported Endocrine: No see HPI, No excessive thirst, No too hot, No too cold, No tired/ sluggish, No problem reported Gastrointestinal: + constipation Cardiovascular: No see HPI, No heart murmur, No chest pain, No angina, No irregular heartbeat, No palpitations, No swelling ankles/feet, No problem reported Respiratory: No see HPI, No shortness of breath, No wheezing, No coughing up blood, No chronic cough, No problem reported Skin: No see HPI, No rash, No boils, No dry skin, No problem reported Musculoskeletal: No see HPI, No joint pain, No neck pain, No back pain, No arthritis, No problem reported Ears / Nose / Throat: No see HPI, No hearing loss, No sinus, No hoarse voice, No sore throat, No problem reported Psychologic / Mental: No see HPI, No nervous, No trouble remembering, No difficulty sleeping, No problem reported Male : + kidney stones Physical Exam Vital Signs: Vital Signs Past 12 Hours Date Time Temp Pulse Resp B/P (MAP) Pulse Ox O2 Delivery O2 Flow Rate FiO2 08/06/17 10:50 37.1 73 17 151/85 (107) 94 Room Air 08/06/17 10:50 Room Air 08/06/17 10:07 73 18 139/80 98 Room Air 08/06/17 09:36 100 Room Air 08/06/17 08:19 69 24 160/98 100 08/06/17 07:48 94 08/06/17 07:38 37.0 106 18 198/136 97 Room Air Physical Exam: General Appearance: + moderate distress Eyes: bilateral eyes normal inspection, bilateral eyes PERRL, bilateral eyes EOMI ENT: normal ENT inspection, hearing grossly normal, TMs normal, pharynx normal Neck: supple, no adenopathy, thyroid normal, no JVD Respiratory/Chest: chest non-tender, lungs clear, normal breath sounds, no respiratory distress, no accessory muscle use Cardiovascular: regular rate, rhythm, no edema, no gallop, no JVD, no murmur Extremities: normal range of motion, non-tender, normal inspection, no pedal edema, no calf tenderness, normal capillary refill Neurologic/Psychiatric: protocol officer II-XII nml as tested, no motor/sensory deficits, alert, normal mood/affect, oriented x 3 Skin: normal color, warm/dry, no rash Lymphatic: no adenopathy Assessment & Plan Assessment & Plan Imaging: CT, KUB, Ultrasound Treatment Planned: ureteroscopy w/ laser, cystoscopy w/ stent pt and to decide on possible intervention today or in am All questions answered
[2017-08-06] MEDS ORDERED: LIDOCAINE HCL 2% 2 ML VIAL (20MG/ML) ONE (13:14)
[2017-08-06] MEDS ORDERED: MIDAZOLAM HCL 1 MG/ML 2ML VIAL ONE (13:14)
[2017-08-06] MEDS ORDERED: PROPOFOL IV EMULSION 10 MG/ML 20 ML VIAL IV ONE (13:14)
[2017-08-06] MEDS ORDERED: DEXAMETHASONE SOD INJ 4 MG/ML VIAL ONE (13:14)
[2017-08-06] MEDS ORDERED: FENTANYL CITRATE INJ 50 MCG/1 ML 2 ML VIAL ONE ×4 (13:14→15:26)
[2017-08-06] MEDS ORDERED: ONDANSETRON INJ 2 MG/ML 2 ML VIAL ONE (13:14)
[2017-08-06] MEDS ORDERED: Cysto-Conray II 17.2% 250ML BOTTLE ONE (13:26)
[2017-08-06] MEDS ORDERED: EpHEDrine SULFATE INJ 50 MG/ML AMP IV PRN (13:30)
[2017-08-06] MEDS ORDERED: ATROPINE SULFATE 0.1 MG/ML 5ML SYR IV PRN (13:30)
[2017-08-06] MEDS ORDERED: EpHEDrine SULFATE 50MG/5ML SYR ONE (14:36)
--- NOTE | 2017-08-06 15:05 | [facility] Post Operative Brief Note ---
Immediate Operative Summary Operative Date Aug 06, 2017. Pre-Operative Diagnosis l ureteral stone Post-Operative Diagnosis L ureteral stone uretral stricture small ureteral perforation Procedure(s) Performed cystocopy ballon dilation of ureteral stricture retrograde attempted ureteroscopy left stent Surgeon laura Director Of Mechanical Engineering Surgeon(s) none Estimated Blood Loss 0 Findings See Below stone on retrograde appeared near sacrum w obstruction Specimens none Drains 5 by 26 stent Anesthesia Type General Complication(s) small perforation of ureteral stricture second stricture above perforation made passage of scope impossible on retrograde stone appeared more proximal over sacral area Disposition Accompanied Pt To Recover: no Disposition: Recovery Room / PACU
--- NOTE | 2017-08-06 15:08 | Anesthesiology Progress Note ---
Anesthesia Post Op Note Date & Time Aug 06, 2017 at 15:08 Vital Signs Pain Intensity: 2.0 Vital Signs Past 12 Hours Date Time Temp Pulse Resp B/P (MAP) Pulse Ox O2 Delivery O2 Flow Rate FiO2 08/06/17 10:50 37.1 73 17 151/85 (107) 94 Room Air 08/06/17 10:50 Room Air 08/06/17 10:07 73 18 139/80 98 Room Air 08/06/17 09:36 100 Room Air 08/06/17 08:19 69 24 160/98 100 08/06/17 07:48 94 08/06/17 07:38 37.0 106 18 198/136 97 Room Air Notes Mental Status: alert / awake / arousable, participated in evaluation Pt Amnestic to Procedure: Yes Nausea / Vomiting: adequately controlled Pain: adequately controlled Airway Patency, RR, SpO2: stable & adequate BP & HR: stable & adequate Hydration State: stable & adequate Anesthetic Complications: no major complications apparent
--- NOTE | 2017-08-06 15:15 | DIAGNOSTIC IMAGING REPORT ---
RETROGRADE INCLUDES KUB CLINICAL HISTORY: STENT PLACEMENT stent placement TECHNIQUE: Image intensifier COMPARISON STUDY: CT 08/06/2017 FINDINGS: Retrograde images show placement of a left-sided guidewire followed by a left ureteral stent. IMPRESSION: Left ureteral stent placement. Image intensifier assistance. The above report was generated using voice recognition software. It may contain grammatical, syntax or spelling errors. Electronically signed by: Jevon Granados M.D. 08/06/2017 3:13 PM Dictated Date/Time: 08/06/2017 3:12 PM
[2017-08-06] MEDS: FENTANYL CITRATE INJ 50 MCG/1 ML 2 ML VIAL IV PRN ×2 (15:19→15:24)
--- NOTE | 2017-08-06 15:30 | OPERATIVE REPORT ---
DATE OF OPERATION: 08/06/2017 PROCEDURES PERFORMED: Cystoscopy, left retrograde, left balloon dilation of distal ureter, left ureteroscopy, attempted and left stent placement. PREOPERATIVE DIAGNOSIS: Left ureteral stone. POSTOPERATIVE DIAGNOSIS: Same. SURGEON: Dr. Pabon. ANESTHESIA: General. COMPLICATIONS: Small perforation of the very distal ureter, about a cm into the ureter or maybe 2 cm into the ureter. DESCRIPTION OF THE PROCEDURE: The patient was taken to the operating room. General anesthesia was administered. He had received antibiotics earlier in the morning. He was prepped and draped in the usual sterile fashion. A 21-Guyanese scope was passed per urethra. There were no evidence of any urethral strictures. The bladder was examined with a 70 degree lens. No tumors were seen. The patient had a moderately trabeculated bladder and there was a little bit of blood at the ureteral orifice on the left. There was no significant edema of the orifice itself. I attempted to pass an open-ended catheter to do a retrograde was unsuccessful because of the tightness of the distal ureteral orifice, so I passed a dual flex guidewire through the 5-Guyanese open-ended catheter into the distal ureter and passed the scope up the ureter several centimeters and did a retrograde. Images showed that the stone was somewhere near the sacral area and there was obstruction there and obstruction above this with hydronephrosis above this. I used this as a guide and passed to the guidewire up into the renal pelvis. The stone did appear, I thought at just overlying the sacral ring. At this juncture, because it was difficult to get the open-ended catheter in, I thought it would be difficult to pass ureteroscope atraumatically. I passed a 4 cm balloon with a 15 atmosphere balloon over the guidewire under fluoroscopy and passed the balloon about 2 cm to 2.5 cm into the distal ureter with enough out so that I could see some out of the orifice. I dilated this and there appeared to be wasting 360 degrees at about a 1 to 1.5 cm inside the ureter. I left this for about 2 minutes in the wasting. A partially opened, so decompressed the balloon, removed the balloon leaving the wire in place then pushed the ureteroscope up to this area. This appeared to be a small perforation medial to the ureter. I did not see a stone. If there was a stone, it went completely through the wall and I attempted to try to pass the ureter easily beyond this area, but there appeared to be another narrowing about 0.5 cm above this, which made passing the scope easily through difficult. Because I did not want to further cause any damage, I decided that this was not a safe endeavor, so I stopped leaving the wire in place and took some pictures of the 2 areas, removed the ureteroscope and passed a 5-Guyanese 26 cm balloon over a cystoscope that I reintroduced after I removed the ureteroscope over the wire. This appeared to be in proper position and a picture was taken of this fluoroscopy. At the end of the procedure, the scope was removed after the bladder was emptied and the patient was transferred to the recovery room in stable condition. I attest to the content of the Intraoperative Record and any orders documented therein. Any exception s are noted below.
[2017-08-06] MEDS ORDERED: PROCHLORPERAZINE INJ 5 MG in SYRINGE 4 ML IV PRN (20:30)
[2017-08-06] MEDS: CIPROFLOXACIN / D5W 400 MG in PREMIXED IN D5W 200 ML IV SCH (20:53)
[2017-08-07 03:30] VITALS: BP 148/87; PULSE 72; TEMP 37.1; O2SAT 94
[2017-08-07] MEDS: SODIUM CHLORIDE 0.9% 1000ML 1,000 ML IV SCH ×2 (05:45→14:42)
[2017-08-07 05:46] LABS: BASO % 0.1 %; BASO ABS # 0.01 K/uL (0-0.2); EOS % 0.3 %; EOS ABS # 0.03 K/uL (0-0.5); HEMATOCRIT 40.9 % (42-52); HEMOGLOBIN 13.8 g/dL (14.0-18.0); IG# 0.03 K/uL (0.00-0.02); LYMPH % 13.8 %; LYMPH ABS # 1.37 K/uL (1.2-3.4); MEAN CELL VOLUME 84.9 fL (80-100); MEAN CORPUSCULAR HEMOGLOBIN 28.6 pg (25-34); MEAN CORPUSCULAR HGB CONC 33.7 g/dl (32-36); MEAN PLATELET VOLUME 10.3 fL (7.4-10.4); MONO % 11.5 %; MONO ABS # 1.14 K/uL (0.11-0.59); NEUT ABS # 7.32 K/uL (1.4-6.5); PLATELET COUNT 206 K/uL (130-400); RED CELL DISTRIBUTION WIDTH CV 12.9 % (11.5-14.5); RED CELL DISTRIBUTION WIDTH SD 39.9 fL (36.4-46.3)
[2017-08-07 06:08] LABS: CREATININE 0.98 mg/dl (0.60-1.40); POTASSIUM 3.9 mmol/L (3.5-5.1)
[2017-08-07 07:02] VITALS: BP 131/83; PULSE 67; TEMP 37; O2SAT 94
--- NOTE | 2017-08-07 08:41 | Progress Note ---
Subjective Date of Service: Aug 07, 2017. Subjective Pt evaluation today including: conversation w/ patient, conversation w/ family , physical exam, lab review pt requied some pain meds this am for mild pain on r and l side . Pt had small2 to 3 mm stone in r kidney on ct and kub . Discussed stricture and small perforation and feel the stone proximal to this on retrograde and ct and kub pre op . If stone at area than it is extruded from lumen of ureter and would not intervene unless obstruction developed Pt w/o bm and will begin to rx but advised aggressive outpt management and to minimize narcotics f/u to schedule possibly litho or repeat ureteroscopy Problem List Medical Problems: (1) Left flank pain Status: Acute (2) Ureteral calculus Status: Acute Objective Vital Signs Date Time Temp Pulse Resp B/P (MAP) Pulse Ox O2 Delivery O2 Flow Rate FiO2 08/07/17 07:02 37.0 67 14 131/83 (99) 94 Room Air 08/07/17 03:30 37.1 72 18 148/87 (107) 94 Room Air 08/06/17 23:32 Room Air 08/06/17 23:00 36.6 77 18 137/76 (96) 94 Room Air 08/06/17 21:06 74 147/90 (109) 08/06/17 20:00 Room Air 08/06/17 19:59 36.7 72 19 165/104 (124) 96 Room Air 08/06/17 18:00 36.7 65 18 135/79 (97) 96 Room Air 08/06/17 17:00 36.9 69 16 130/80 (97) 92 Room Air 08/06/17 16:30 36.5 61 16 148/86 (106) 98 Nasal Cannula 2.0 08/06/17 16:00 97 Nasal Cannula 2.0 08/06/17 16:00 97 Nasal Cannula 2.0 08/06/17 16:00 36.5 60 16 155/89 (111) 96 Nasal Cannula 2.0 08/06/17 15:45 36.6 60 18 133/75 94 Nasal Cannula 2 08/06/17 15:35 60 18 143/77 97 Nasal Cannula 2 08/06/17 15:25 68 18 143/91 97 Nasal Cannula 2 08/06/17 15:15 73 18 144/88 97 Oxymask 10 08/06/17 15:05 81 18 144/96 97 Oxymask 10 08/06/17 14:56 36.4 79 18 147/88 98 Oxymask 10 08/06/17 10:50 37.1 73 17 151/85 (107) 94 Room Air 08/06/17 10:50 Room Air 08/06/17 10:07 73 18 139/80 98 Room Air 08/06/17 09:36 100 Room Air Laboratory Results Last 24 Hours Test 08/07/17 05:18 White Blood Count 9.90 K/uL Red Blood Count 4.82 M/uL Hemoglobin 13.8 g/dL Hematocrit 40.9 % Mean Corpuscular Volume 84.9 fL Mean Corpuscular Hemoglobin 28.6 pg Mean Corpuscular Hemoglobin Concent 33.7 g/dl Platelet Count 206 K/uL Mean Platelet Volume 10.3 fL Neutrophils (%) (Auto) 74.0 % Lymphocytes (%) (Auto) 13.8 % Monocytes (%) (Auto) 11.5 % Eosinophils (%) (Auto) 0.3 % Basophils (%) (Auto) 0.1 % Neutrophils # (Auto) 7.32 K/uL Lymphocytes # (Auto) 1.37 K/uL Monocytes # (Auto) 1.14 K/uL Eosinophils # (Auto) 0.03 K/uL Basophils # (Auto) 0.01 K/uL RDW Standard Deviation 39.9 fL RDW Coefficient of Variation 12.9 % Immature Granulocyte % (Auto) 0.3 % Immature Granulocyte # (Auto) 0.03 K/uL Sodium Level 137 mmol/L Potassium Level 3.9 mmol/L Chloride Level 108 mmol/L Carbon Dioxide Level 22 mmol/L Anion Gap 7.0 mmol/L Blood Urea Nitrogen 15 mg/dl Creatinine 0.98 mg/dl Est Creatinine Clear Calc Drug Dose 108.3 ml/min Estimated GFR () 105.2 Estimated GFR (Non- 90.8 BUN/Creatinine Ratio 15.3 Random Glucose 110 mg/dl Calcium Level 8.0 mg/dl Magnesium Level 2.1 mg/dl Triglycerides Level 183 mg/dl Cholesterol Level 144 mg/dl HDL Cholesterol 31 mg/dl LDL Cholesterol, Calculated 76 mg/dl VLDL Cholesterol, Calculated 37 mg/dl Cholesterol/HDL Ratio 4.6 Assessment and Plan mom and colace now kub prior to d/c f/u in 7 to 10 days as outpt
[2017-08-07] MEDS ORDERED: DOCUSATE SODIUM 100 MG CAP PO ONE (08:45)
[2017-08-07] MEDS ORDERED: MAGNESIUM HYDROXIDE SUSP 30 ML UDC PO ONE (08:45)
[2017-08-07] MEDS ORDERED: TAMSULOSIN HCL 0.4 MG CAP PO SCH (09:00)
[2017-08-07] MEDS: CIPROFLOXACIN / D5W 400 MG in PREMIXED IN D5W 200 ML IV SCH (09:07)
--- NOTE | 2017-08-07 09:07 | DIAGNOSTIC IMAGING REPORT ---
KUB HISTORY: Follow-up study in a patient with nephrolithiasis nephrolithiasis COMPARISON: CT abdomen and pelvis and KUB 08/06/2017 FINDINGS: The bowel gas pattern is non-obstructive. There is no organomegaly. The previously noted 5 mm calculus of the left ureter is not definitively seen. A left ureteral stent in place which appears to be in satisfactory positioning. 5 mm density which projects over the left upper abdomen at the level of L3-L4 appears new from prior study and may reflect colonic stool contents. 3 mm calculus of the interpolar right kidney is noted. Multiple pelvic calcifications redemonstrated suggesting phleboliths. No pneumoperitoneum or pneumatosis. No fracture. IMPRESSION: 1. Left ureteral stent in place with previously noted 5 mm calculus of the distal left ureter not identified. 2. Multiple pelvic calcifications redemonstrated suggesting phleboliths. 3. 3 mm calculus of the right kidney appears unchanged. Electronically signed by: Levy Kessler M.D. 08/07/2017 9:05 AM Dictated Date/Time: 08/07/2017 9:02 AM
[2017-08-07 11:15] VITALS: BP 137/78; PULSE 66; TEMP 36.5; O2SAT 95
[2017-08-07 14:57] VITALS: BP 157/93; PULSE 66; TEMP 36.8; O2SAT 95
--- NOTE | 2017-08-07 15:09 | Discharge Instructions ---
Discharge Instructions Date of Service Aug 07, 2017. Admission Reason for Admission: Left Flank Pain, Ureteral Calculus Discharge Discharge Diagnosis / Problem: LEFT FLANK PAIN, URETERAL CALCULUS Discharge Goals Goal(s): Decrease discomfort, Improve function Activity Recommendations Activity Limitations: resume your previous activity . Instructions / Follow-Up Instructions / Follow-Up FOLLOWUP WITH FAMILY DOCTOR ON July AT 9:45AM FOLLOWUP WITH UROLOGY IN 7 - 10DAYS ( [address] [place] [address]) CAN TAKE FISH OIL FOR HIGH TRIGLYCERIDES BUT START TAKING AFTER PROCEDURE FOR KIDNEY STONE Current Hospital Diet Patient's current hospital diet: Regular Diet Discharge Diet Recommended Diet: Regular Diet Procedures Procedures Performed: cystocopy ballon dilation of ureteral stricture retrograde attempted ureteroscopy left stent Pending Studies Studies pending at discharge: no Laboratory Results Lipid Panel Test 08/07/17 05:18 Range/Units Triglycerides Level 183 H 0-150 mg/dl Cholesterol Level 144 0-200 mg/dl HDL Cholesterol 31 mg/dl Cholesterol/HDL Ratio 4.6 LDL Cholesterol, Calculated 76 mg/dl Medical Emergencies . Who to Call and When: Medical Emergencies: If at any time you feel your situation is an emergency, please call 911 immediately. . Non-Emergent Contact Non-Emergency issues call your: Primary Care Provider . . "Provider Documentation" section prepared by Jett Garcia. .
[2017-08-07 15:24] VITALS: BP 157/93; PULSE 66; TEMP 36.8; O2SAT 95
--- NOTE | 2017-08-07 18:45 | Progress Note ---
Internal Med Progress Note Date of Service: Aug 07, 2017. Provider Documentation: SUBJECTIVE: resting comfortably s/p cystoscopy and stent placement pain improved no nausea afebrile ok to go home OBJECTIVE: Vital Signs-as noted below Exam: General-alert and oriented. Not in distress ENT-Normal hearing Neck-no neck masses Lungs-cta b/l no wheezing or crackles Heart-S1 and S2 heard regular rate and rhythm no murmurs Abdomen-Soft bowel sounds present non tender no distension no cva tenderness Extremities-no edema no erythema Neuro-alert and awake moves extremities Lab data as noted below. ASSESSMENT & PLAN: : This 46-year-old male presents with left obstructing ureteral calculus. 1. Left obstructing distal ureteral calculus with moderate perinephric infiltrative change with leukocytosis and renal failure. Not able to pass as outpatient. On Flomax. IV fluids, pain control s/p cystoscopy and stent placement by urology to f/u with urology in 7-10days 2. Acute renal failure secondary to above, on fluids. resolved. 3. History of hypertriglyceridemia. Follow lipid profile. TG 183 ldl 76 and hdl 31 f/u with pcp. advised for fish oil discharged home Vital Signs: Date Time Temp Pulse Resp B/P (MAP) Pulse Ox O2 Delivery O2 Flow Rate FiO2 08/07/17 15:24 36.8 66 19 95 Room Air 08/07/17 14:57 36.8 66 19 157/93 (114) 95 Room Air 08/07/17 11:15 36.5 66 16 137/78 (97) 95 Room Air 08/07/17 07:49 Room Air 08/07/17 07:02 37.0 67 14 131/83 (99) 94 Room Air 08/07/17 03:30 37.1 72 18 148/87 (107) 94 Room Air 08/06/17 23:32 Room Air 08/06/17 23:00 36.6 77 18 137/76 (96) 94 Room Air 08/06/17 21:06 74 147/90 (109) 08/06/17 20:00 Room Air 08/06/17 19:59 36.7 72 19 165/104 (124) 96 Room Air Lab Results: Results Past 24 Hours Test 08/07/17 05:18 Range/Units White Blood Count 9.90 4.8-10.8 K/uL Red Blood Count 4.82 4.7-6.1 M/uL Hemoglobin 13.8 14.0-18.0 g/dL Hematocrit 40.9 42-52 % Mean Corpuscular Volume 84.9 80-100 fL Mean Corpuscular Hemoglobin 28.6 25-34 pg Mean Corpuscular Hemoglobin Concent 33.7 32-36 g/dl Platelet Count 206 130-400 K/uL Mean Platelet Volume 10.3 7.4-10.4 fL Neutrophils (%) (Auto) 74.0 % Lymphocytes (%) (Auto) 13.8 % Monocytes (%) (Auto) 11.5 % Eosinophils (%) (Auto) 0.3 % Basophils (%) (Auto) 0.1 % Neutrophils # (Auto) 7.32 1.4-6.5 K/uL Lymphocytes # (Auto) 1.37 1.2-3.4 K/uL Monocytes # (Auto) 1.14 0.11-0.59 K/uL Eosinophils # (Auto) 0.03 0-0.5 K/uL Basophils # (Auto) 0.01 0-0.2 K/uL RDW Standard Deviation 39.9 36.4-46.3 fL RDW Coefficient of Variation 12.9 11.5-14.5 % Immature Granulocyte % (Auto) 0.3 % Immature Granulocyte # (Auto) 0.03 0.00-0.02 K/uL Sodium Level 137 136-145 mmol/L Potassium Level 3.9 3.5-5.1 mmol/L Chloride Level 108 98-107 mmol/L Carbon Dioxide Level 22 21-32 mmol/L Anion Gap 7.0 3-11 mmol/L Blood Urea Nitrogen 15 7-18 mg/dl Creatinine 0.98 0.60-1.40 mg/dl Est Creatinine Clear Calc Drug Dose 108.3 ml/min Estimated GFR () 105.2 Estimated GFR (Non- 90.8 BUN/Creatinine Ratio 15.3 10-20 Random Glucose 110 70-99 mg/dl Calcium Level 8.0 8.5-10.1 mg/dl Magnesium Level 2.1 1.8-2.4 mg/dl Triglycerides Level 183 0-150 mg/dl Cholesterol Level 144 0-200 mg/dl HDL Cholesterol 31 mg/dl LDL Cholesterol, Calculated 76 mg/dl VLDL Cholesterol, Calculated 37 mg/dl Cholesterol/HDL Ratio 4.6
--- NOTE | 2017-08-07 19:25 | Discharge Summary ---
Discharge Summary Date of Service Aug 07, 2017. Discharge Summary Admission Date: Aug 06, 2017 at 10:09 Discharge Date: Aug 07, 2017 Discharge Disposition: Home Principal Diagnosis: LEFT URETERAL CALCULUS ARF Secondary Diagnoses/Problems: hypertriglyceridemia, history of kidney stones Procedures: RENAL US: 1. Mild left hydroureteronephrosis with a trace amount of perinephric fluid. 2. Nonobstructing upper pole renal calcification. 3. Normal right kidney. CT ABD/PELVIS; 1. Obstructing 5 mm distal left ureteral calculus. 2. Moderate left hydroureteronephrosis with moderate perinephric and periureteral infiltrative change. 3. Chronic sigmoid diverticulosis. 4. Nonobstructing mid pole right renal calcification. 5. Bilateral fat-containing inguinal hernias. KUB:1. Left ureteral stent in place with previously noted 5 mm calculus of the distal left ureter not identified. 2. Multiple pelvic calcifications redemonstrated suggesting phleboliths. 3. 3 mm calculus of the right kidney appears unchanged. Consultations: UROLOGY Medication Reconciliation Continued Medications: Hydrocodon/Acetaminophen 5MG/300MG (Vicodin (5MG/300MG)) 1 Tab Tab 1 TAB PO Q4H PRN for Pain, TAB Ondansetron Hcl (Zofran) 4 Mg Tab 4 MG PO DAILY PRN for Nausea, TAB Tamsulosin Hcl (Flomax) 0.4 Mg Cap 0.4 MG PO DAILY, CAP Discontinued Medications: Ibuprofen (Motrin) 600 Mg Tab 600 MG PO Q8 PRN for Pain, TAB Admission Information HPI (per Admitting provider): : A 46-year-old male with past medical history significant for hypertriglyceridemia, history of kidney stones, presents with left flank pain going on since last Tuesday. The patient says initially the pain lasted for 1 day and resolved, but it came back on when he went to [facility] where he was told that he has a 5 mm left ureteral stone and was told that it can pass on its own and was discharged on pain medications, but he did not pass the stone and the pain was getting worse, starting in left flank, radiating to his groins, very severe , also with nausea, vomiting and some blood in the urine. Also Feeling cold but denies any fevers.So he came to the ER today and CAT scan showed 5 mm obstructing stone in left distal ureter with left hydronephrosis. The patient is hemodynamically stable. Denies any headaches, no dizziness, no blurred vision, no earache. No sore throat or difficulty swallowing. No chest pain, no cough. He had hiccups but they are gone now. No shortness of breath. No diarrhea or constipation. No swelling in the legs. No skin rash. Physical Exam (per Admitting): GENERAL: The patient is of moderate build, not in distress. VITAL SIGNS: Temperature 37, pulse 69, respiratory rate 24, blood pressure 160/98, oxygen 100% room air. HEENT: No pallor, no icterus. Pupils equal, round and react to light. NECK: No JVD, no neck masses, no carotid bruit. CARDIOVASCULAR: S1, S2 heard. Regular rate and rhythm. No murmur, no gallop. RESPIRATORY: Normal AP diameter. No accessory muscle use. No wheezing, no crackles. ABDOMEN: Soft. Bowel sounds present. Diffuse tenderness, more in the left lower quadrant. No distention. No CVA tenderness. CENTRAL NERVOUS SYSTEM: Cranial nerves II-XII grossly intact. Nonfocal. EXTREMITIES: No edema, no erythema. Hospital Course : This 46-year-old male presents with left obstructing ureteral calculus. 1. Left obstructing distal ureteral calculus with moderate perinephric infiltrative change with leukocytosis and renal failure. Not able to pass as outpatient. On Flomax. IV fluids, pain control s/p cystoscopy and stent placement by urology to f/u with urology in 7-10days 2. Acute renal failure secondary to above, on fluids. resolved. 3. History of hypertriglyceridemia. Follow lipid profile. TG 183 ldl 76 and hdl 31 f/u with pcp. advised for fish oil discharged home Total time spent on discharge = 35MINUTES This includes examination of the patient, discharge planning, medication reconciliation, and communication with other providers. Discharge Instructions Discharge Instructions Date of Service Aug 07, 2017. Admission Reason for Admission: Left Flank Pain, Ureteral Calculus Discharge Discharge Diagnosis / Problem: LEFT FLANK PAIN, URETERAL CALCULUS Discharge Goals Goal(s): Decrease discomfort, Improve function Activity Recommendations Activity Limitations: resume your previous activity . Instructions / Follow-Up Instructions / Follow-Up FOLLOWUP WITH FAMILY DOCTOR ON July AT 9:45AM FOLLOWUP WITH UROLOGY IN 7 - 10DAYS ( [address] [place] [address]) CAN TAKE FISH OIL FOR HIGH TRIGLYCERIDES BUT START TAKING AFTER PROCEDURE FOR KIDNEY STONE Current Hospital Diet Patient's current hospital diet: Regular Diet Discharge Diet Recommended Diet: Regular Diet Procedures Procedures Performed: cystocopy ballon dilation of ureteral stricture retrograde attempted ureteroscopy left stent Pending Studies Studies pending at discharge: no Laboratory Results Lipid Panel Test 08/07/17 05:18 Range/Units Triglycerides Level 183 H 0-150 mg/dl Cholesterol Level 144 0-200 mg/dl HDL Cholesterol 31 mg/dl Cholesterol/HDL Ratio 4.6 LDL Cholesterol, Calculated 76 mg/dl Medical Emergencies . Who to Call and When: Medical Emergencies: If at any time you feel your situation is an emergency, please call 911 immediately. . Non-Emergent Contact Non-Emergency issues call your: Primary Care Provider . .
[2017-08-19] MEDS ORDERED: OXYC-57 PO (10:29)
== END 2017-08-07 15:57 | disposition home or self-care (01) | DRG 660 ==
LOC: C.EDA 07:34 → C.MSN 10:09 → ENRESERV 10:20
PROVIDERS: ADMIT Internal Medicine; ATTEND Internal Medicine
PROC: 0T778ZZ Dilation of Left Ureter, Via Natural or Artificial Opening Endoscopic (ICD-10-PCS; principal; 2017-08-06 13:01)
DX: N13.2 Hydronephrosis with renal and ureteral calculous obstruction (principal); S37.19XA Other injury of ureter, initial encounter; Y84.8 Other medical procedures as the cause of abnormal reaction of the patient, or of later complication, without mention of misadventure at the time of the procedure; Y92.234 Operating room of hospital as the place of occurrence of the external cause; N13.1 Hydronephrosis with ureteral stricture, not elsewhere classified; N17.9 Acute kidney failure, unspecified; K59.00 Constipation, unspecified; Z87.442 Personal history of urinary calculi; Z86.39 Personal history of other endocrine, nutritional and metabolic disease; Z87.891 Personal history of nicotine dependence; Z96.653 Presence of artificial knee joint, bilateral; Z98.890 Other specified postprocedural states; Z88.0 Allergy status to penicillin; Z82.49 Family history of ischemic heart disease and other diseases of the circulatory system

== ENCOUNTER → 2017-08-16 | Outpatient (CLI) | payer OTHER ==
[~2017-08-16] MED LIST changes: +HYDR-3419 PO; -METF500T PO; +ONDA4TAB46 PO; +OXYC-57 PO; -RXC5 PO; +TAMS0.4C38 PO
--- NOTE | 2017-08-16 15:02 | DIAGNOSTIC IMAGING REPORT ---
KUB CLINICAL HISTORY: 46 years-old Male presenting with N20.1 Calculi, [id number]. TECHNIQUE: Single supine view of the abdomen was obtained. COMPARISON: 08/07/[address] from 08/06/2017. FINDINGS: Nonobstructive bowel gas pattern. No gross pneumoperitoneum. Redemonstration of the left ureteral stent and calculus at the lower pole the left kidney. The calculus at the level of the mid to distal left ureter is not apparent. No radiographic evidence of ureteral calculi. Stable distribution of pelvic phleboliths. Right renal calculus again noted. Osseous structures normal. IMPRESSION: 1. Left ureteral stent. No ureteral calculi. 2. Bilateral nephrolithiasis. Electronically signed by: Bryce Cruz M.D. 08/16/2017 3:01 PM Dictated Date/Time: 08/16/2017 2:58 PM
== END | disposition home or self-care (01) ==
LOC: C.RAD 14:39
PROVIDERS: ATTEND Urology
DX: N20.1 Calculus of ureter (principal); N20.0 Calculus of kidney

== ENCOUNTER → 2017-08-19 | Day surgery (SDC) | payer OTHER ==
[2017-08-18 08:22] VITALS: Ht 177.8 cm; Wt 106.8 kg
[~2017-08-19] VITALS: Ht 177.8 cm; Wt 106.8 kg
[~2017-08-19] MED LIST changes: +ATROPINE SULFATE 0.1 MG/ML 5ML SYR IV PRN; +CIPROFLOXACIN 400MG / D5W IV SCH; +DEXAMETHASONE SOD INJ 4 MG/ML VIAL ONE; +EpHEDrine SULFATE INJ 50 MG/ML AMP IV PRN; +FENTANYL CITRATE INJ 50 MCG/1 ML 2 ML VIAL IV PRN; +FENTANYL CITRATE INJ 50 MCG/1 ML 2 ML VIAL ONE; -HYDR-3419 PO; +LACTATED RINGER'S 1000ML 1,000 ML IV SCH; +LIDOCAINE HCL 2% 2 ML VIAL (20MG/ML) ONE; +MIDAZOLAM HCL 1 MG/ML 2ML VIAL ONE; -ONDA4TAB46 PO; +ONDANSETRON INJ 2 MG/ML 2 ML VIAL IV PRN; +ONDANSETRON INJ 2 MG/ML 2 ML VIAL ONE; +OXYCODONE/ACETAMINOPHEN 5-325 TAB PO PRN; +PROPOFOL IV EMULSION 10 MG/ML 20 ML VIAL IV ONE; -TAMS0.4C38 PO
--- NOTE | 2017-08-19 08:04 | DIAGNOSTIC IMAGING REPORT ---
KUB CLINICAL HISTORY: N20.0 [id number] COMPARISON STUDY: 08/16/2017 FINDINGS: There is no pathologic bowel dilatation. There is a double-pigtail left-sided nephroureteral stent. There is a 5 mm proximal left ureteral calculus at the L4-5 level. There is equivocal 3 mm mid pole right renal calculus. IMPRESSION: 1. 5 mm proximal left ureteral calculus 2. Subtle nephroureteral stent 3. Equivocal 3 mm mid pole right renal calculus Electronically signed by: Lizandro Elizabeth M.D. 08/19/2017 8:03 AM Dictated Date/Time: 08/19/2017 8:01 AM
--- NOTE | 2017-08-19 10:28 | [facility] Operative Report ---
Operative Report Operative Date Aug 19, 2017. Pre-Operative Diagnosis Left Ureteral Calculi Post-Operative Diagnosis Same Procedure(s) Performed Left Extracorporeal Shock Wave Lithotripsy Surgeon Dr. Ashley Stone Perinatal Coordinator Surgeon(s) None Estimated Blood Loss 0 Findings left ureteral stone Specimens None Drains left ureteral stent Anesthesia Type General Complication(s) none Disposition yes Recovery Room / PACU Indications left ureteral stone Description of Procedure Patient was identified in the preoperative holding area, appropriate informed consent was reviewed and completed and the patient was transported to the operating suite. Upon arrival appropriate preoperative antibiotics were administered and general anesthesia induced. The patient was placed in supine position and the stone was localized under fluoroscopy. A total of [_2500__] shocks were delivered to the stone. There appeared to be good fragmentation of the stone. Details of this procedure can be found on the [facility] information sheet. At the conclusion of the case the patient was extubated and taken to the PACU in stable condition. There were no complications. I attest to the content of the Intraoperative Record and any orders documented therein. Any exceptions are noted below.
--- NOTE | 2017-08-19 10:30 | Discharge Instructions-SurgCtr ---
Discharge Instructions Date of Service Aug 19, 2017. Visit Reason for Visit: Stones Discharge Discharge Diagnosis / Problem: left ureteral stone Discharge Goals Goal(s): Therapeutic intervention Activity Recommendations Activity Limitations: per Instructions/Follow-up section Exercise/Sports Limitations: rest today May Resume Sexual Activity: when tolerated Shower/Bathe: no limitations Driving or Machine Use: resume 1 day after discharge Anesthesia . Post Anesthesia Instructions: If you have had General Anesthesia or IV Sedation: * Do not drive today. * Resume driving when surgeon permits. * Do not make important decisions or sign legal documents today. * Call surgeon for: 1. Temperature elevations greater than 101 degrees F. 2. Uncontrollable pain. 3. Excessive bleeding. 4. Persistent nausea and vomiting. 5. Medication intolerance (nausea, vomiting or rash). * For nausea and vomiting use only clear liquids such as: tea, soda, bouillon until nausea subsides, then gradually increase diet as tolerated. * If you have any concerns or questions, call your surgeon's office. If physician is unavailable and it is an emergency, call 911 or go to the nearest emergency room. . Instructions / Follow-Up Instructions / Follow-Up MEDICATIONS: Resume previous medications unless instructed otherwise by your surgeon. Resume pre-ES[facility] medication except for aspirin, coumadin or other blood thinners. __ Toradol 10 mg every 6 hours for initial pain. __ Lortab 5 mg 1-2 every 4 hours for pain. _x_ Percocet 5 mg 1-2 every 4 hours for pain. __ Macrodantin 50 mg x 3 a day. __ Flomax 1 tab daily one half (1/2) hour after supper. SPECIAL CARE INSTRUCTIONS: 1. Get KUB (x-ray) _x_ day before or day of office visit and bring x-ray to office __ get x-ray 2 days before and tell office you are getting x-rays when you call for the appointment. 2. Strain ALL urine. 3. Please call if you have a fever, chills, severe pain, or constant dribbling of urine. 4. Office phone number . FOLLOW UP VISIT: Please call the office to schedule a follow-up appointment at . Diet Recommendations Home Diet: resume previous diet Procedures Procedures Performed: Left Extracorporeal Shock Wave Lithotripsy Pending Studies Studies pending at discharge: no Medical Emergencies . Who to Call and When: Medical Emergencies: If at any time you feel your situation is an emergency, please call 911 immediately. . Non-Emergent Contact Non-Emergency issues call your: Urologist Call Non-Emergent contact if: temperature is above 101.5, your pain is not controlled . . "Provider Documentation" section prepared by Phil Stone. . [place] Drug Monitoring Program Search Results: patient reviewed within database
[2017-08-19 11:40] VITALS: TEMP 36.4
[2017-08-19 12:03] VITALS: BP 119/76; PULSE 56; O2SAT 96
--- NOTE | 2017-08-19 12:15 | Anesthesiology Progress Note ---
Anesthesia Post Op Note Date & Time Aug 19, 2017 at 12:14 Vital Signs Pain Intensity: 0 Vital Signs Past 12 Hours Date Time Temp Pulse Resp B/P (MAP) Pulse Ox O2 Delivery O2 Flow Rate FiO2 08/19/17 12:03 56 16 119/76 (90) 96 Room Air 08/19/17 11:40 36.4 56 16 132/84 (100) 95 Room Air 08/19/17 11:23 64 20 08/19/17 11:23 66 20 93 08/19/17 11:22 36.5 56 18 114/76 97 Room Air 08/19/17 11:20 146/80 08/19/17 11:18 71 12 08/19/17 11:18 72 12 93 08/19/17 11:15 115/77 08/19/17 11:13 60 16 08/19/17 11:13 60 16 93 08/19/17 11:10 116/77 08/19/17 11:08 65 17 08/19/17 11:08 66 17 96 08/19/17 11:05 120/76 08/19/17 11:03 60 25 08/19/17 11:03 60 25 95 08/19/17 11:00 110/72 08/19/17 10:58 55 16 96 08/19/17 10:58 55 16 08/19/17 10:55 116/75 08/19/17 10:54 37.0 56 18 114/76 97 Room Air 08/19/17 10:54 114/76 08/19/17 10:53 55 16 97 08/19/17 10:53 55 16 08/19/17 08:45 36.7 62 18 125/84 (98) 95 Room Air Notes Mental Status: alert / awake / arousable, participated in evaluation Pt Amnestic to Procedure: Yes Nausea / Vomiting: adequately controlled Pain: adequately controlled Airway Patency, RR, SpO2: stable & adequate BP & HR: stable & adequate Hydration State: stable & adequate Anesthetic Complications: no major complications apparent
== END | disposition home or self-care (01) ==
LOC: X.SURG 08:13
PROVIDERS: ATTEND Urology
DX: N20.1 Calculus of ureter (principal)

== ENCOUNTER → 2017-08-30 | Outpatient (CLI) | payer OTHER ==
[~2017-08-30] MED LIST changes: -ATROPINE SULFATE 0.1 MG/ML 5ML SYR IV PRN; -CIPROFLOXACIN 400MG / D5W IV SCH; -DEXAMETHASONE SOD INJ 4 MG/ML VIAL ONE; -EpHEDrine SULFATE INJ 50 MG/ML AMP IV PRN; -FENTANYL CITRATE INJ 50 MCG/1 ML 2 ML VIAL IV PRN; -FENTANYL CITRATE INJ 50 MCG/1 ML 2 ML VIAL ONE; -LACTATED RINGER'S 1000ML 1,000 ML IV SCH; -LIDOCAINE HCL 2% 2 ML VIAL (20MG/ML) ONE; -MIDAZOLAM HCL 1 MG/ML 2ML VIAL ONE; -ONDANSETRON INJ 2 MG/ML 2 ML VIAL IV PRN; -ONDANSETRON INJ 2 MG/ML 2 ML VIAL ONE; -OXYCODONE/ACETAMINOPHEN 5-325 TAB PO PRN; -PROPOFOL IV EMULSION 10 MG/ML 20 ML VIAL IV ONE
--- NOTE | 2017-08-30 15:52 | DIAGNOSTIC IMAGING REPORT ---
KUB CLINICAL HISTORY: 46 years-old Male presenting with N20.0 Nephrolithiasis, post lithotripsy on the left. TECHNIQUE: Single supine view of the abdomen was obtained. COMPARISON: 08/19/[address] from 08/06/2017. FINDINGS: Possibly of small bowel gas, nonspecific. Moderate stool burden in the right colon. Left ureteral stent in place. The previously noted calculus in the proximal left ureter is no longer present. No calcification is noted along the course of the left ureteral stent. Stable distribution of pelvic phleboliths without evidence of a bladder calculus. Poorly visualized known punctate calculus in the right kidney. Degenerative changes of the lower thoracic spine. IMPRESSION: 1. Previously noted left ureteral calculus no longer present. Left ureteral stent remains in place. 2. No radiographically visible renal calculi. Electronically signed by: Bryce Cruz M.D. 08/30/2017 3:50 PM Dictated Date/Time: 08/30/2017 3:48 PM
== END | disposition home or self-care (01) ==
LOC: C.RAD 14:42
PROVIDERS: ATTEND Urology
DX: N20.0 Calculus of kidney (principal)

== ENCOUNTER 2021-04-14 22:39 | Inpatient (IN) ==
[2021-04-14] MEDS ORDERED: SODIUM CHLORIDE 0.9% 500 ML IV STA (22:47)
[2021-04-14] MEDS ORDERED: ONDANSETRON INJ 2 MG/ML 2 ML VIAL IV STA (22:47)
[2021-04-14] MEDS ORDERED: KETOROLAC TROMETHAMINE 15 MG/ML VIAL IV STA (22:47)
[2021-04-14 23:01] LABS: Hematocrit (blood only) 44.2 % (42-52); Hemoglobin 15.5 g/dL (14.0-18.0); Mean Corpuscular Hemoglobin 29.9 pg (25-34); Mean Corpuscular Hgb Conc 35.1 g/dL (32-36); Mean Corpuscular Volume 85.3 fL (80-100); Mean Platelet Volume 10.4 fL (7.4-10.4); Platelet Count 259 K/uL (130-400); RDW Coefficient of Variation 13.1 % (11.5-14.5); Red Blood Count 5.18 M/uL (4.7-6.1); White Blood Count 14.69 K/uL (4.8-10.8)
[2021-04-14 23:16] LABS: BUN Creatinine Ratio 15.9 (10-20); Blood Urea Nitrogen 22 mg/dl (7-18); Calcium 9.4 mg/dl (8.5-10.1); Carbon Dioxide 24 mmol/L (21-32); Chloride 108 mmol/L (98-107); Est GFR (African American) 68.2 ml/min; Est GFR (Non-African American) 58.9 ml/min; Glucose 188 mg/dl (70-99); Potassium 3.8 mmol/L (3.5-5.1); Sodium 139 mmol/L (136-145)
[2021-04-14 23:51] LABS: Lipase 157 U/L (73-393)
[2021-04-15] MEDS ORDERED: SODIUM CHLORIDE 0.9% 1000ML 1,000 ML IV ONE (00:22)
--- NOTE | 2021-04-15 00:23 | Emergency Department Note ---
Impression & Plan Kidney stone on right side ADMIT ED Provider Note HPI: The patient is a 50-year-old male with history of hypertension, hyperlipidemia, type 2 diabetes, who presents the emergency department with a chief complaint of right flank pain. Patient states the pain began earlier this evening, states it felt similar to kidney stone pain that he has had in the past. Patient denies any nausea or vomiting, denies any chest pain or shortness of breath. Patient denies any dysuria. On arrival to the ED he is in mild discomfort secondary to pain. He is otherwise hemodynamically stable and saturating well on room air. ROS: -: Right flank pain *10 point review systems was conducted and is otherwise negative unless stated above *Outpatient medications and allergy history reviewed PE: General: Alert, NAD HEENT: Normocephalic, atraumatic, trachea midline Eyes: Extraocular eye movement is intact, no scleral erythema Pulmonary: Clear to auscultation bilaterally, no wheezing Cardio: Regular rate and rhythm GI: Abdomen is soft, nontender, right flank tenderness to palpation : No suprapubic tenderness MSK: No evidence of trauma or malformation of the extremities, no edema Skin: No evidence of rash Neuro: Alert, no focal deficits Psychiatric: Cooperative Preliminary Findings Only See Final Report For Complete Findings CT ABDOMEN & PELVIS With Contrast: Comparison August 06, 2017. Moderate right hydronephrosis due to a 8 mm calculus in the mid right ureter located approximately 13 cm from the ureterovesicular junction. There is a nonobstructive 3 mm calyceal calculus in the upper pole of the right kidney and 1-2 mm calyceal calculi in the left kidney. Cardiomegaly and severe coronary calcification are noted. Fatty infiltration of the liver and borderline hepatomegaly measuring 19.1 cm. There is a focal ill-defined 2 cm low-density in the right liver lobe. There is no mass-effect upon the adjacent liver capsule is reduced and this is focal fatty infiltration. The gallbladder, pancreas, spleen, and adrenal glands are unremarkable. Diverticulosis throughout the left and sigmoid colon. No acute inflammatory changes are seen involving the bowel. The appendix is normal. The urinary bladder is empty and unremarkable. Bilateral fat-containing inguinal hernias measuring up to 4.3 cm on the left. Moderate changes throughout the spine. No acute fracture or traumatic subluxation is seen. Medical Decision Making: CT imaging of the abdomen and pelvis was obtained and does show evidence of a large right-sided kidney stone that measures 8 mm in diameter, located approximately 13 cm from the UVJ proximally. Urinalysis does not show any convincing evidence of infection, patient does have a leukocytosis however renal function is intact. Patient was given IV morphine as well as IV Toradol here in the ED for pain. On my reassessment he states his pain is improved but is still present. I do suspect a lot of difficulty passing the stone and given the size of the stone with his pain I did consult the urology advanced practice provider, Sagar Allison, who evaluated the patient at the bedside. We will plan for admission to the [facility] hospitalist service for urology consultation and further care. Patient is in agreement the above plan as is his significant other at the bedside, patient was admitted in stable condition. * Diagnosis: Kidney stone, intractable pain, hydronephrosis * Disposition: Admission Jevon Andrews DO Emergency Medicine Past Med/Surg History Medical History Anxiety Diabetes type 2, controlled NIDDM Dyslipidemia (high LDL; low HDL) History of anesthesia reaction combative, emotional History of nephrolithiasis Hypertension Right inguinal hernia Surgical History H/O umbilical hernia repair 2014 History of lithotripsy S/P shoulder replacement 2016 S/p total knee replacement, bilateral 2008 Family History Mother Kidney stones Myocardial infarction Heart disease Grandmother (Maternal) Myocardial infarction Heart disease Uncle Myocardial infarction Maternal Denies family history of Ovarian cancer Prostate cancer Breast cancer Colorectal cancer Social History Smoking Status: Never smoker Tobacco Type: Cigarettes Age Started Using Tobacco: 13; Age Quit Using Tobacco: 23; packs per day: 0.5; Second Hand Exposure: No; Hx Alcohol Use: Yes Alcohol Intake Frequency: 2-4 x/Month Alcohol Intake Frequency Comment: social Hx Substance Use: Yes Prescribed Medications: Marijuana Last Used Substance Other:: 03/20 Preferred Language: Fijian Communication Ability: Effective Hearing Ability: Normal Home Health Clinical Supervisor Required: No Beliefs That Will Affect Care: None marital status: Single Current Living Situation: Significant Other Current Living Situation Comment: lives with paul current occupational status: employed 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 [employer] How many Children do You have: 2 Feels Safe at Home: Yes Childhood Exposure to Second-Hand Smoke: Yes caffeine: Yes (coffee x 2-3 per day.) during the past year weight has: remained stable Dental Care, Regularly: Yes Physical Activity Frequency: 3-4 Times per Week Seatbelt Use: always Sunscreen Use: No Allergies Allergies Allergy/AdvReac Type Severity Reaction Status Date / Time Penicillins Allergy Intermediate HIVES Verified 04/15/21 00:44 amoxicillin Allergy Mild hives Verified 04/15/21 00:44 Home Meds Home Medications Medication Instructions Recorded Confirmed cholecalciferol (vitamin D3) 25 0 mcg PO DAILY 04/15/21 04/15/21 mcg (1,000 unit) capsule (Vitamin D3) Previous Rx's Medication Instructions Recorded betamethasone valerate 0.1 % 1 applic TOPICAL BID PRN #45 g 03/19/21 topical cream glimepiride 4 mg tablet 4 mg PO QAM #90 tab 03/19/21 metformin 500 mg tablet 500 mg PO BID #180 tab 03/19/21 sildenafil 50 mg tablet 50 mg PO DAILY PRN #30 tab 03/19/21 aspirin 81 mg tablet,delayed 81 mg PO DAILY #30 tab 03/23/21 release atorvastatin 20 mg tablet 20 mg PO QPM #30 tab 03/23/21 lisinopril 10 mg tablet 10 mg PO QAM #90 tab 03/23/21 Results & Data (ED) Vital Signs Vital Signs - 24 hr 04/14/21 22:40 04/15/21 01:21 04/15/21 03:00 Temperature 36.0 C L Temperature Source Temporal Artery Scan Pulse Rate 85 Pulse Rate [Finger] 89 56 L Pulse Rhythm Regular Pulse Rhythm [Finger] Regular Pulse Strength Normal Pulse Strength [Finger] Normal Respiratory Rate 24 16 Respiratory Effort / Characteristics Spontaneous Labored Non-Labored Respiratory Depth Normal Normal Blood Pressure 152/82 H Blood Pressure [Right Arm] 168/99 H 162/95 H Blood Pressure Mean 105 Blood Pressure Mean [Right Arm] 122 117 Blood Pressure Position Sitting Blood Pressure Position [Right Arm] Pulse Oximetry 98 98 93 Oxygen Delivery Method Room Air Room Air Room Air Sepsis Recent Fever Within 48 Hours No Sepsis New/Unexplained Change in Mental Status N/A Sepsis Action Taken by Nursing No Action Required 04/15/21 05:00 Temperature Temperature Source Pulse Rate Pulse Rate [Finger] 60 Pulse Rhythm Pulse Rhythm [Finger] Regular Pulse Strength Pulse Strength [Finger] Normal Respiratory Rate 16 Respiratory Effort / Characteristics Non-Labored Respiratory Depth Normal Blood Pressure Blood Pressure [Right Arm] 115/97 Blood Pressure Mean Blood Pressure Mean [Right Arm] 103 Blood Pressure Position Blood Pressure Position [Right Arm] Lying Pulse Oximetry 94 Oxygen Delivery Method Room Air Sepsis Recent Fever Within 48 Hours Sepsis New/Unexplained Change in Mental Status Sepsis Action Taken by Nursing Laboratory Data Result diagrams: 04/14/21 22:51 04/14/21 22:51 Lab Results 04/14/21 04/14/21 04/15/21 Range/Units 22:51 22:51 Unknown WBC 14.69 H (4.8-10.8) K/uL RBC 5.18 (4.7-6.1) M/uL Hgb 15.5 (14.0-18.0) g/dL Hct 44.2 (42-52) % MCV 85.3 (80-100) fL MCH 29.9 (25-34) pg MCHC 35.1 (32-36) g/dL RDW Std Deviation 41.0 (36.4-46.3) fL RDW Coeff of Kathie 13.1 (11.5-14.5) % Plt Count 259 (130-400) K/uL MPV 10.4 (7.4-10.4) fL Sodium 139 (136-145) mmol/L Potassium 3.8 (3.5-5.1) mmol/L Chloride 108 H (98-107) mmol/L Carbon Dioxide 24 (21-32) mmol/L Anion Gap 7.0 (3-11) BUN 22 H (7-18) mg/dl Creatinine 1.37 (0.6-1.4) mg/dl Est Cr Clr Drug Dosing Not Reportable Est GFR ( Amer) 68.2 ml/min Est GFR (Non-Af Amer) 58.9 ml/min BUN/Creatinine Ratio 15.9 (10-20) Glucose 188 H (70-99) mg/dl Calcium 9.4 (8.5-10.1) mg/dl Lipase 157 (73-393) U/L Urine Color Yellow Urine Appearance Turbid A (Clear) Urine pH 7.5 (4.5-7.5) POC Urine pH (4.5-7.5) Ur Specific [place] 1.019 (1.000-1.030) Urine Protein 2+ H (Negative) POC Urine Protein (Negative) Urine Glucose (UA) 1+ H (Negative) POC Ur Glucose (UA) (Normal) Urine Ketones Negative (Negative) POC Urine Ketones (Negative) Urine Blood 3+ H (Negative) POC Urine Blood (Negative) Urine Nitrite Negative (Negative) POC Urine Nitrite (Negative) Urine Bilirubin Negative (Negative) Urine Urobilinogen Negative (Negative) POC Urine Urobilinogen (Normal) Ur Leukocyte Esterase Negative (Negative) POC U Leukocyte Esteras (Negative) Urine WBC (Auto) 1-5 (0-5) /hpf Urine RBC (Auto) >30 H (0-4) /hpf U Hyaline Cast (Auto) 1-5 (0-5) /lpf U Epithel Cells (Auto) 20-30 H (0-5) /lpf Urine Bacteria (Auto) Negative (Negative) 04/15/21 Range/Units Unknown WBC (4.8-10.8) K/uL RBC (4.7-6.1) M/uL Hgb (14.0-18.0) g/dL Hct (42-52) % MCV (80-100) fL MCH (25-34) pg MCHC (32-36) g/dL RDW Std Deviation (36.4-46.3) fL RDW Coeff of Kathie (11.5-14.5) % Plt Count (130-400) K/uL MPV (7.4-10.4) fL Sodium (136-145) mmol/L Potassium (3.5-5.1) mmol/L Chloride (98-107) mmol/L Carbon Dioxide (21-32) mmol/L Anion Gap (3-11) BUN (7-18) mg/dl Creatinine (0.6-1.4) mg/dl Est Cr Clr Drug Dosing Est GFR ( Amer) ml/min Est GFR (Non-Af Amer) ml/min BUN/Creatinine Ratio (10-20) Glucose (70-99) mg/dl Calcium (8.5-10.1) mg/dl Lipase (73-393) U/L Urine Color Urine Appearance (Clear) Urine pH (4.5-7.5) POC Urine pH 6 (4.5-7.5) Ur Specific [place] (1.000-1.030) Urine Protein (Negative) POC Urine Protein 2+ H (Negative) Urine Glucose (UA) (Negative) POC Ur Glucose (UA) 50 H (Normal) Urine Ketones (Negative) POC Urine Ketones Negative (Negative) Urine Blood (Negative) POC Urine Blood 250 H (Negative) Urine Nitrite (Negative) POC Urine Nitrite Negative (Negative) Urine Bilirubin (Negative) Urine Urobilinogen (Negative) POC Urine Urobilinogen Normal (Normal) Ur Leukocyte Esterase (Negative) POC U Leukocyte Esteras Negative (Negative) Urine WBC (Auto) (0-5) /hpf Urine RBC (Auto) (0-4) /hpf U Hyaline Cast (Auto) (0-5) /lpf U Epithel Cells (Auto) (0-5) /lpf Urine Bacteria (Auto) (Negative) Administered Medications Morphine Sulfate (Morphine Sulfate 10 Mg/Ml Carp/Vial) 6 mg IV Q10M PRN PRN Reason: Pain Last Admin: 04/15/21 01:16 Dose: 6 mg Documented by: [id number] Discontinued Medications Sodium Chloride (Nss) 500 mls @ 999 mls/hr IV .Q31M STA Stop: 04/14/21 23:17 Last Infusion: 04/15/21 01:14 Dose: 0 mls/hr Documented by: [id number] Admin: 04/15/21 00:42 Dose: 999 mls/hr Documented by: [id number] Sodium Chloride (Nss 1000ml) 1,000 mls @ 999 mls/hr IV .Q1H1M ONE Stop: 04/15/21 01:22 Last Infusion: 04/15/21 01:44 Dose: 0 mls/hr Documented by: [id number] Admin: 04/15/21 00:42 Dose: 999 mls/hr Documented by: [id number] Ioversol (Optiray 320 100ml) 98 ml IV ONCE ONE Stop: 04/15/21 01:42 Last Admin: 04/15/21 01:41 Dose: 1 ml Documented by: [id number] Ketorolac Tromethamine (Ketorolac Tromethamine 15 Mg/Ml Vial) 15 mg IV ONE STA Stop: 04/14/21 22:48 Last Admin: 04/14/21 22:57 Dose: 15 mg Documented by: [id number] Ondansetron HCl (Ondansetron Inj 2 Mg/Ml 2 Ml Vial) 4 mg IV NOW STA Stop: 04/14/21 22:48 Last Admin: 04/14/21 22:57 Dose: 4 mg Documented by: [id number] Discharge Plan Visit Data Chief Complaint: Kidney Stone Stated Complaint: KIDNEY STONE ED Provider: Jevon Andrews Discharge Problem: Kidney stone on right side Forms Stand Alone Forms: [facility] Prescriptions Prescriptions: No Action atorvastatin 20 mg tablet 20 mg PO QPM Qty: 30 RF: 2 aspirin 81 mg tablet,delayed release (DR/EC) 81 mg PO DAILY Qty: 30 RF: 2 betamethasone valerate 0.1 % cream 1 applic topical BID PRN (Reason: skin irritation) Qty: 45 RF: 2 glimepiride 4 mg tablet 4 mg PO QAM Qty: 90 RF: 1 metformin 500 mg tablet 500 mg PO BID Qty: 180 RF: 3 sildenafil 50 mg tablet 50 mg PO DAILY PRN (Reason: sexual activity) Qty: 30 RF: 3 lisinopril 10 mg tablet 10 mg PO QAM Qty: 90 RF: 1 cholecalciferol (vitamin D3) [Vitamin D3] 25 mcg (1,000 unit) Capsule 0 mcg PO DAILY RF: 0 Referrals Referrals: Leopoldo Warner CRNP [Primary Care Provider] -
[2021-04-15 00:51] LABS: POC Urine Leukocytes Negative (Negative)
[2021-04-15 00:52] LABS: POC Urine Blood 250 (Negative); POC Urine Glucose 50 (Normal); POC Urine Ketones Negative (Negative); POC Urine Nitrite Negative (Negative); POC Urine Protein 2+ (Negative); POC Urine Urobilinogen Normal (Normal); POC Urine pH 6 (4.5-7.5)
[2021-04-15 01:05] LABS: Appearance Urine Turbid (Clear); Bacteria Urine Automated Negative (Negative); Bilirubin Urine Negative (Negative); Blood Urine 3+ (Negative); Color Urine Yellow; Epithelial Cell Urine Auto 20-30 /lpf (0-5); Glucose Urine UA 1+ (Negative); Ketones Urine Negative (Negative); Leukocyte Esterase Urine Negative (Negative); Nitrite Urine Negative (Negative); RBC Urine Automated >30 /hpf (0-4); Specific Gravity Urine 1.019 (1.000-1.030); Urobilinogen Urine Negative (Negative); pH Urine 7.5 (4.5-7.5)
[2021-04-15 01:08] LABS: Protein Urine 2+ (Negative)
[2021-04-15] MEDS: MoRPHine SULFATE 10 MG/ML CARP/VIAL IV PRN ×2 (01:16→06:44)
[2021-04-15] MEDS ORDERED: OPTIRAY 320 100ml IV ONE (01:41)
--- NOTE | 2021-04-15 06:14 | Urology Consultation ---
Date of Consultation April 15, 2021 Assessment & Plan (1) Nephrolithiasis: I discussed with the treating emergency room physician. He is planning on having the hospitalist admit the patient to the hospital. We recommend proceeding as follows: Provide analgesics Provide antiemetics Hydration measures with IV fluid to be employed Consider initiating Flomax for expulsive therapy Strain all urine and save any kidney stones retrieved for proper analysis We will keep the patient n.p.o. due to the size of his kidney stone and hydronephrosis. Determination will be made later this morning if patient will require cystoscopic intervention. History of Present Illness Reason for Consultation: Nephrolithiasis History of Present Illness This is a 50-year-old male who presented to the emergency department secondary to right-sided flank pain that began last evening. Patient said prior to this he was in his usual state of health feeling fine. He says that the pain radiates to his right groin. He has had associated nausea vomiting. He denies any fevers, shakes, chills. He does not note any modifying factors for the pain other the medicine that was administered in the emergency department. Patient says he does have an extensive history of kidney stones requiring lithotripsy and cystoscopies in the past. Patient does report that during one of his p revious procedure interventions he did suffer a urethral injury but he was not able to provide any more details. Patient notes that he has not eaten since last evening. In the emergency department the patient had labs and imaging which I independently reviewed. He did have a CT scan of the abdomen and pelvis that showed moderate right hydronephrosis with an 8 mm kidney stone in the mid right ureter. CBC revealed white blood cell count was 14.6. Hemoglobin, hematocrit, and platelet count were all within normal range. Chemistry profile showed sodium, potassium, and creatinine were all within normal range. Urinalysis showed 3+ blood but was otherwise not indicative of infection. A Covid test will be ordered and is pending. Question the patient about his daily lifestyle. He says that he is quite active when he is feeling well. With his activities of daily living he does not get chest pain or shortness of breath. At the time of my interview the patient was resting comfortably in bed in no distress Allergies Allergy/AdvReac Type Severity Reaction Status Date / Time Penicillins Allergy Intermediate HIVES Verified 04/15/21 00:44 amoxicillin Allergy Mild hives Verified 04/15/21 00:44 Home Medications Medication Instructions Recorded Confirmed Type betamethasone valerate 0.1 % 1 applic TOPICAL BID PRN #45 g 03/19/21 04/15/21 Rx topical cream glimepiride 4 mg tablet 4 mg PO QAM #90 tab 03/19/21 04/15/21 Rx metformin 500 mg tablet 500 mg PO BID #180 tab 03/19/21 04/15/21 Rx sildenafil 50 mg tablet 50 mg PO DAILY PRN #30 tab 03/19/21 04/15/21 Rx aspirin 81 mg tablet,delayed 81 mg PO DAILY #30 tab 03/23/21 04/15/21 Rx release atorvastatin 20 mg tablet 20 mg PO QPM #30 tab 03/23/21 04/15/21 Rx lisinopril 10 mg tablet 10 mg PO QAM #90 tab 03/23/21 04/15/21 Rx cholecalciferol (vitamin D3) 25 0 mcg PO DAILY 04/15/21 04/15/21 History mcg (1,000 unit) capsule (Vitamin D3) Patient History Medical History Anxiety Diabetes type 2, controlled NIDDM Dyslipidemia (high LDL; low HDL) History of anesthesia reaction combative, emotional History of nephrolithiasis Hypertension Right inguinal hernia Surgical History H/O umbilical hernia repair 2014 History of lithotripsy S/P shoulder replacement 2016 S/p total knee replacement, bilateral 2007 Family History Mother Kidney stones Myocardial infarction Heart disease Grandmother (Maternal) Myocardial infarction Heart disease Uncle Myocardial infarction Maternal Denies family history of Ovarian cancer Prostate cancer Breast cancer Colorectal cancer Social History Smoking Status: Never smoker Tobacco Type: Cigarettes Age Started Using Tobacco: 13; Age Quit Using Tobacco: 23; packs per day: 0.5; Second Hand Exposure: No; Hx Alcohol Use: Yes Alcohol Intake Frequency: 2-4 x/Month Alcohol Intake Frequency Comment: social Hx Substance Use: Yes Prescribed Medications: Marijuana Last Used Substance Other:: 03/20 Preferred Language: Canadian Communication Ability: Effective Hearing Ability: Normal Sand 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 Required: No Beliefs That Will Affect Care: None marital status: Single Current Living Situation: Significant Other Current Living Situation Comment: lives with fimeliton current occupational status: employed 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 [id number] How many Children do You have: 2 Feels Safe at Home: Yes Childhood Exposure to Second-Hand Smoke: Yes caffeine: Yes (coffee x 2-3 per day.) during the past year weight has: remained stable Dental Care, Regularly: Yes Physical Activity Frequency: 3-4 Times per Week Seatbelt Use: always Sunscreen Use: No Review of Systems Constitutional: no fever and no chills Eyes: no diplopia Ear, Nose, Mouth, Throat: no ear pain Respiratory: no cough and no dyspnea Cardiovascular: no chest pain Gastrointestinal: + abdominal pain, + nausea and + vomiting Genitourinary: + flank pain (Right sided); no dysuria, no urinary frequency or no hematuria Musculoskeletal: + back pain (Right-sided flank) Integumentary: no rash Neurologic: no localized weakness Physical Exam Constitutional: well developed and well nourished; no acute distress Eyes: no conjunctival abnormality ENMT: Ears: no hearing impairment Mouth: no oropharynx abnormality Neck: trachea midline Respiratory: normal respiratory effort; no respiratory distress and no labored breathing Cardiovascular: Rate/Rhythm: regular rate and regular rhythm Gastrointestinal (Abdomen): Abdomen is soft, nontender, nondistended. There is minimal pain with palpation in the right lower quadrant. Musculoskeletal: No calf tenderness Skin: no rashes Neurologic: moves all extremities Psychiatric: A+Ox3, euthymic affect Results & Data ([facility]) Vital Signs (Past 12 Hours) Vital Signs Temp Pulse Pulse Resp BP BP Pulse Ox 04/15/21 05:00 60 16 115/97 94 04/15/21 03:00 56 L 16 162/95 H 93 04/15/21 01:21 89 168/99 H 98 04/14/21 22:40 36.0 C L 85 24 152/82 H 98 PG Care Time/CCT Total # of Minutes Spent Total Time Spent with Patient: Total time spent is greater than 50% in coordination of care (as documented) at patient's floor/unit and/or counseling patient: Coding Level of Care Code 50850 Inpt Consult Level 5 Diagnoses Nephrolithiasis N20.0
--- NOTE | 2021-04-15 07:43 | History & Physical Report ---
Date of Service April 15, 2021 Assessment & Plan (1) Nephrolithiasis: Plan: Nephrolithiasis CT A/P stat rad: Moderate right hydronephrosis with 8 mm calculus in the mid right ureter approximately 13 cm from UVJ. Nonobstructive 3 mm [place] calculus in the upper pole of right kidney, 1-2 mm calculus calculi in left kidney. Cardiomegaly and severe coronary calcifications noted. Fatty infiltration of liver with borderline hepatomegaly measuring 19 cm. There is a focal ill-defined 2 cm low-density in the right liver lobe without mass-effect. Gallbladder, pancreas, spleen, adrenal glands unremarkable. Diverticulosis through the left and sigmoid colon. No inflammatory changes in bowel appreciated. Appendix is normal. Urinary bladder is empty and unremarkable. Bilateral fat-containing inguinal hernias measuring up to 4.3 cm on left. No acute spinal fracture or traumatic subluxation is appreciated. Leukocytosis to 14.69 Afebrile Creatinine 1.37, within normal limits Glucose on admission 180 UA: Protein, blood present. Negative for ketones, leukocyte esterase, bacteria. No signs of superimposed UTI, defer antibiotics at this time Covid negative Urology consulted. Recommend analgesia, antiemetics, hydration, consideration of Flomax, straining all urine, and n.p.o. Patient to be assessed for cystoscopic intervention later in the morning. Appreciate recommendations. Status post Toradol 15 mg x 1 Status post NSS 1500 cc bolus Tylenol 60 mg every 6 hours as needed Hydromorphone 0.5-1 mg scaled analgesia as needed every 4 hours Zofran 4 mg IV as needed every 4 hours N.p.o. NSS +10 M EQ KCl 125 cc/h (2) Diabetes type 2, controlled: Plan: Type 2 diabetes mellitus Hold home metformin, glimepiride Glucose checks AC/at bedtime Insulin glargine SSI (3) Hypertension: Plan: Hypertension Hold lisinopril in case cysto pursued - PT reasonable BP control, intermittent elevation with pain Continue aspirin 81 mg daily (4) Dyslipidemia (high LDL; low HDL): Plan: Hyperlipidemia Continue atorvastatin (5) Heart disease: Plan: - Mother with 3x bipass at age 30 - Calcium deposits in coronaries noted on CT - Denies chest pain/pressure, exertional angina - No acute signs of ischemia, pt high risk and should have outpt followup History of Present Illness Chief Complaint: Right flank pain Primary Care Provider: LEVON Barron Yousuf Lugo is a 50-year-old male with past medical history of hyperlipidemia, type 2 diabetes mellitus not on insulin therapy, hypertension, and nephrolithiasis with past lithotripsy who presents with 1 day of right flank pain similar to his prior kidney stone. Yousuf reports he initially thought he was having trouble going to the bathroom, felt like he needed to go but couldnt. No dysuria/blood. Later in the evening was with family making dinner and around 9pm last night developed pain in the R back consistent with his prior episode of kidney stones. This will be his 5th or 6th kidney stone, was much worse (yearly) when he lived in [place]. Moved here in 1996. Has felt chilly then sweaty, has not checked temperature. Endorses nausea and vomiting, 1x vomiting at home nad 1x on the way here. No bloody/bilious emesis. Nausea improved with zofran, no completely but close. No diarrhea. No constipation. Medical History: Reviewed. Sees Leopoldo Stack. Has early CAD at time of T2DM diagnosis 2 years ago. Medications: Reviewed. Have not taken today or last night. Surgical History: Reviewed, hx of lithotrypsy, hernia repair. History of traumatic uretheral tear with cysto requiring a catheter placement for a 1 week. bilat total knee, shoulder repair. umbilical hernia repeat. Allergies: Reviewed. Adverse rxn to anethesia, has had agitation/delirium on recovery which passes. No hemodynamic compromise. Social History: No tobacco product use currently, 5-6 year cigarette sporadic use whil ein the [employer]. Rare social alcohol 1-2/wk. Medical marijuana card for anxiety/chronic pain. Code Status: Full Code Allergies Allergy/AdvReac Type Severity Reaction Status Date / Time Penicillins Allergy Intermediate HIVES Verified 04/15/21 00:44 amoxicillin Allergy Mild hives Verified 04/15/21 00:44 Home Medications Medication Instructions Recorded Confirmed Type betamethasone valerate 0.1 % 1 applic TOPICAL BID PRN #45 g 03/19/21 04/15/21 Rx topical cream glimepiride 4 mg tablet 4 mg PO QAM #90 tab 03/19/21 04/15/21 Rx metformin 500 mg tablet 500 mg PO BID #180 tab 03/19/21 04/15/21 Rx sildenafil 50 mg tablet 50 mg PO DAILY PRN #30 tab 03/19/21 04/15/21 Rx aspirin 81 mg tablet,delayed 81 mg PO DAILY #30 tab 03/23/21 04/15/21 Rx release atorvastatin 20 mg tablet 20 mg PO QPM #30 tab 03/23/21 04/15/21 Rx lisinopril 10 mg tablet 10 mg PO QAM #90 tab 03/23/21 04/15/21 Rx cholecalciferol (vitamin D3) 25 0 mcg PO DAILY 04/15/21 04/15/21 History mcg (1,000 unit) capsule (Vitamin D3) Past Med/Surg History Medical History Anxiety Diabetes type 2, controlled NIDDM Dyslipidemia (high LDL; low HDL) History of anesthesia reaction combative, emotional History of nephrolithiasis Hypertension Right inguinal hernia Surgical History H/O umbilical hernia repair 2014 History of lithotripsy S/P shoulder replacement 2016 S/p total knee replacement, bilateral 2008 Family History Mother Kidney stones Myocardial infarction Heart disease Grandmother (Maternal) Myocardial infarction Heart disease Uncle Myocardial infarction Maternal Denies family history of Ovarian cancer Prostate cancer Breast cancer Colorectal cancer Social History Smoking Status: Never smoker Tobacco Type: Cigarettes Age Started Using Tobacco: 13; Age Quit Using Tobacco: 23; packs per day: 0.5; Second Hand Exposure: No; Hx Alcohol Use: Yes Alcohol Intake Frequency: 2-4 x/Month Alcohol Intake Frequency Comment: social Hx Substance Use: Yes Prescribed Medications: Marijuana Last Used Substance Other:: 03/20 Preferred Language: Kiswahili Communication Ability: Effective Hearing Ability: Normal 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: No Beliefs That Will Affect Care: None marital status: Single Current Living Situation: Significant Other Current Living Situation Comment: lives with fiance current occupational status: employed 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 NAD. Cooperative. Appears uncomfortable but nontoxic HEENT: Atraumatic, normocephalic. PERLAA. EoM intact. hearing/vision grossly intact. Pulm: CTAB A&P. -wheezes, -rales, -rhonchi. Symmetrical chest rise. No increase work of breathing. No respiratory distress. Cardiac: RRR, -mrg. Radial pulses intact and symmetrical. Abdominal: Trace diffuse abdominal tenderness without rebound or peritoneal signs, nondistended, soft. BS present. R flank pain Ext: Intact, atraumatic. Moving alison extremities equally. Sensation to soft touch and temp intact in hands and feet without deficit. PT/Radial pulses intact and symmetricla. Results & Data Results & Data ([facility]) Vital Signs (Past 12 Hours) Vital Signs Temp Pulse Pulse Resp BP BP Pulse Ox 04/15/21 07:00 80 18 149/92 H 95 04/15/21 05:00 60 16 115/97 94 04/15/21 03:00 56 L 16 162/95 H 93 04/15/21 01:21 89 168/99 H 98 04/14/21 22:40 36.0 C L 85 24 152/82 H 98 PG Care Time/CCT Total # of Minutes Spent Total Time Spent with Patient: Total time spent is greater than 50% in coordination of care (as documented) at patient's floor/unit and/or counseling patient: Coding Level of Care Code 49835 Initial Inpt Care Lvl 2 Diagnoses Nephrolithiasis N20.0 Diabetes type 2, controlled E11.9 Hypertension I10 Dyslipidemia (high LDL; low HDL) E78.5 Heart disease I51.9
[2021-04-15] MEDS ORDERED: ONDANSETRON INJ 2 MG/ML 2 ML VIAL IV STA (08:29)
--- NOTE | 2021-04-15 08:32 | CT Scan Report ---
CT abd pelvis IV con only CLINICAL HISTORY: Right lower quadrant and flank pain. History of stones. COMPARISON STUDY: 08/06/2017 CT DOSE: 1272.21 mGy.cm TECHNIQUE: Standard CT of the Abdomen and Pelvis was performed with IV contrast. A dose lowering alexandro hnique was utilized adhering to the principles of ALARA. Contrast Volume: Optiray 320, 98 ml. The patient did not receive oral contrast. FINDINGS: Lung base: The lung bases are clear. Abdominal cavity: There is no evidence for abdominal mass, adenopathy or ascites. There are bilateral inguinal hernias containing peritoneal fat. No bowel loop herniation is seen. Liver: There is homogeneous increased attenuation of the liver parenchyma characteristic of fatty inf iltration. There is no evidence for enhancing mass lesion. Spleen: There is homogeneous attenuation of the splenic parenchyma. There is no enhancing mass lesion . Pancreas: There is homogeneous attenuation of the pancreatic parenchyma. There is no evidence for mas s lesion or peripancreatic fluid collection. Gall Bladder: The gallbladder is well distended with no evidence for intraluminal calculi, wall thick ening or pericholecystic edema. Adrenal glands: The adrenal glands are normal in size and attenuation. There is no evidence for enhan cing mass lesion. Kidneys: There is swelling of the right kidney when compared to the left with perinephric stranding p resent. There is moderate hydronephrosis and proximal hydroureter on the right to the level of the pe lvic inlet. 8 mm ureteral calculus is present at this site producing the obstruction present. Additio ajay, there is a 3 mm nonobstructing right renal calculus. There are also 2, 2 mm nonobstructing lef t renal calculi. There is no evidence for left-sided hydronephrosis. There is no evidence for enhanci ng mass. Bowel: The stomach is grossly distended with liquid and food stuff. The bowel loops are normally plac ed within the abdomen and pelvis without evidence for dilatation or obstruction. There is no evidence for mass lesion. There is diverticulosis of the descending and sigmoid colon without evidence for di verticulitis. There are no inflammatory changes present. There is no evidence for free air. There is a normal appendix in the right lower quadrant. Bladder: The bladder is within normal limits with no evidence for focal mass, calculus or diverticulu m. : There is no evidence for pelvic mass or adenopathy. There is no evidence for pelvic ascites. The prostate is mildly enlarged. Vasculature: There is no evidence for aneurysmal dilatation of the abdominal aorta. Atherosclerotic c alcification is present. Osseous structures: There is no acute osseous pathology. Prominent degenerative changes are seen with in the lumbar spine. IMPRESSION: 1. 8 mm mid right ureteral calculus at the level the pelvic inlet producing moderate hydronephrosis a nd hydroureter on the right with perinephric stranding present. 2. Additional nonobstructing renal calculi are present bilaterally. 3. Diverticulosis without evidence for diverticulitis. 4. Additional nonacute findings are delineated above. ACT 112: Negative or not required by law. Electronically signed by: Freddy Shen M.D. 04/15/2021 8:31 AM
--- NOTE | 2021-04-15 09:15 | Urology Progress Note ---
Date of Service April 15, 2021 Assessment & Plan (1) Right ureteral stone: (2) Right flank pain: (3) Hydronephrosis of right kidney: Plan: 50yo M admitted with intractable right flank pain secondary to an obstructing 8mm right ureteral stone with hydronephrosis - Plan of care reviewed with Dr. Willis, on-call urologist. - KUB this morning reviewed - Visualization of the 8 mm mid right ureteral calculus with moderate hydronephrosis and hydroureter on the right. - Patient afebrile, non-toxic appearing. - Labs reviewed - White count 14.69 and creatinine normal. - Urinalysis on presentation not indicative of infection. - Voiding spontaneously. - Discussed options for acute stone management while inpatient with cystoscopy and stent placement. - Discussed outpatient ESWL as stone was visualized on KUB this morning. - Risks/benefits of each procedure discussed. - Given his intractable right flank pain in the context of an obstructing 8mm right ureteral stone, he prefers to proceed to OR today for cystoscopy, right retrograde pyelogram and right ureteral stent placement. - Risks and benefits to be reviewed with patient by Dr. Willis. OR notified. Will cover with PO Bactrim DS preoperatively. Covid test negative. - Keep NPO for procedure later today. - Strain all urine. - Continue supportive care and pain management. - Will continue to follow. Supervising Physician Co-Signing Physician Notes Discussed patient with CAMILA. Agree with plan. Will plan for cystoscopy with right ureteral stent this afternoon. Subjective Pt examined at bedside. Awake, resting in bed on arrival. No acute distress. Right flank pain has improved with IV pain medication. No nausea or vomiting at present. Denies fevers or chills. Voiding without difficulty. Denies hematuria or dysuria. Feels he is emptying his bladder well. Has been NPO. Review of Systems Constitutional: as per Subjective / HPI Gastrointestinal: as per Subjective / HPI Genitourinary: + as per Subjective / HPI Physical Exam Constitutional: well developed and well nourished; no acute distress and not ill appearing Respiratory: normal respiratory effort and able to speak in complete sentences; no labored breathing and no audible wheezes Gastrointestinal (Abdomen): Inspection/Auscultation: abdomen normal to inspection; abdomen not distended Musculoskeletal: Head/Neck/Chest: normocephalic Skin: No visible rashes or lesions to exposed skin areas Neurologic: moves all extremities and awake Psychiatric: Orientation: alert, oriented x 3 and cooperative Results & Data ([facility]) Vital Signs (Past 12 Hours) Vital Signs Temp Pulse Pulse Resp BP BP Pulse Ox 04/15/21 08:42 63 14 147/76 H 93 04/15/21 07:00 80 18 149/92 H 95 04/15/21 05:00 60 16 115/97 94 04/15/21 03:00 56 L 16 162/95 H 93 04/15/21 01:21 89 168/99 H 98 04/14/21 22:40 36.0 C L 85 24 152/82 H 98 PG Care Time/CCT Total # of Minutes Spent Total Time Spent with Patient: Total time spent is greater than 50% in coordination of care (as documented) at patient's floor/unit and/or counseling patient: Coding Level of Care Code None Diagnoses Right ureteral stone N20.1 Right flank pain R10.9 Hydronephrosis of right kidney N13.30
--- NOTE | 2021-04-15 09:17 | XRay Report ---
XR KUB/Abdomen 1 view CLINICAL HISTORY: Mid right ureteral stone. COMPARISON STUDY: CT of the abdomen and pelvis from 04/15/2021 TECHNIQUE: Single view of the abdomen. FINDINGS: The bowel gas pattern is within normal limits without evidence for dilatation or obstruction. There i s no evidence for organomegaly or gross intra-abdominal mass. Residual contrast is present within the collecting systems from earlier CT. There is moderate hydronephrosis and hydroureter to the level of the pelvic inlet where an 8 mm calculus is seen within the mid right ureter as noted on this CT exam . No acute osseous pathology. IMPRESSION: 1.8 mm mid right ureteral calculus with moderate hydronephrosis and hydroureter on the right. ACT 112: Negative or not required by law. Electronically signed by: rFeddy Shen M.D. 04/15/2021 9:15 AM
[2021-04-15] MEDS ORDERED: ONDANSETRON INJ 2 MG/ML 2 ML VIAL IV PRN ×2 (10:01→16:44)
[2021-04-15] MEDS ORDERED: GLUCOSE 10 TABS/TUBE PO PRN (10:01)
[2021-04-15] MEDS ORDERED: ACETAMINOPHEN 325 MG TAB PO PRN (10:01)
[2021-04-15] MEDS ORDERED: DEXTROSE 50% 50 ML SYRINGE IV PRN (10:01)
[2021-04-15] MEDS ORDERED: GLUCAGON FOR INJ 1 MG VIAL SQ PRN (10:01)
[2021-04-15] MEDS ORDERED: HYDROmorphone INJ 0.5 MG/0.5 ML SYR IV PRN ×2 (10:01→18:28)
[2021-04-15] MEDS ORDERED: HYDROmorphone INJ 1 MG/ML SYRINGE IV PRN ×2 (10:01→18:28)
[2021-04-15] MEDS ORDERED: CARBOHYDRATES FOR HYPOGLYCEMIA PO PRN (10:01)
[2021-04-15] MEDS ORDERED: GLUCOSE 40% GEL 15 GM TUBE PO PRN (10:01)
[2021-04-15] MEDS ORDERED: SULFAMETHOXAZOLE/TRIMETHOPRIM DS 800/160MG TAB PO ONE (12:10)
[2021-04-15] MEDS: POTASSIUM CHLORIDE 10 MEQ in SODIUM CHLORIDE 0.9% 1000ML 1,000 ML IV SCH ×2 (12:29→19:16)
[2021-04-15] MEDS: ASPIRIN 81 MG ECTAB PO SCH (12:29)
[2021-04-15] MEDS: INSULIN GLARGINE SOLOSTAR 100 UNITS/ML 3 ML PEN SC SCH ×2 (12:29→21:41)
[2021-04-15] MEDS: INSULIN ASPART 100 UNITS/ML 3 ML PEN SC SCH ×3 (12:30→21:52)
--- NOTE | 2021-04-15 15:12 | Anesthesiology Consultation ---
Date of Service April 15, 2021 Assessment & Plan Chart Review Chart Review: Acceptable Risk for Surgery and Patient NOT seen in Pre Admission Testing Consults Requested none ASA ASA3 Proposed Anesthesia Anesthesia Type: General History Surgery Operation Date: 04/15/21 15:10 Proposed Procedures p Cystoscopy, Right Retrograde Pyelogram, Right Stent Insertion - Terrance knowles MD Height/Weight Height: 5 ft 11 in Weight: 104.326 kg Allergies Allergy/AdvReac Type Severity Reaction Status Date / Time Penicillins Allergy Intermediate HIVES Verified 04/15/21 00:44 amoxicillin Allergy Mild hives Verified 04/15/21 00:44 Medications Home Medications Medication Instructions Recorded Confirmed Last Taken betamethasone valerate 0.1 % 1 applic TOPICAL BID PRN #45 g 03/19/21 04/15/21 Unknown topical cream glimepiride 4 mg tablet 4 mg PO QAM #90 tab 03/19/21 04/15/21 04/14/21 metformin 500 mg tablet 500 mg PO BID #180 tab 03/19/21 04/15/21 04/14/21 sildenafil 50 mg tablet 50 mg PO DAILY PRN #30 tab 03/19/21 04/15/21 Unknown aspirin 81 mg tablet,delayed 81 mg PO DAILY #30 tab 03/23/21 04/15/21 Unknown release atorvastatin 20 mg tablet 20 mg PO QPM #30 tab 03/23/21 04/15/21 04/14/21 lisinopril 10 mg tablet 10 mg PO QAM #90 tab 03/23/21 04/15/21 04/14/21 cholecalciferol (vitamin D3) 25 0 mcg PO DAILY 04/15/21 04/15/21 04/14/21 mcg (1,000 unit) capsule (Vitamin D3) Active Medications Generic Name Dose Route Start Last Admin Trade Name Freq PRN Reason Stop Dose Admin Aspirin 81 mg 04/15/21 10:15 04/15/21 12:29 Aspirin 81 Mg Ectab PO 05/15/21 10:14 81 mg DAILY LING Administration Potassium Chloride 10 meq/ 1,005 mls @ 125 mls/hr 04/15/21 10:01 04/15/21 12:29 Sodium Chloride IV 04/16/21 02:05 125 mls/hr .Q8H3M LING Administration Insulin Aspart 0 units 04/15/21 11:30 04/15/21 12:30 Insulin Aspart 100 Units/Ml 3 Ml Pen SC 05/15/21 11:29 Not Given ACHS LING Insulin Glargine 9 units 04/15/21 10:15 04/15/21 12:29 Insulin Glargine Solostar 100 Units/Ml 3 Ml Pen SC 05/15/21 10:14 9 units BID LING Administration NPO Date Last Intake of Fluids: 04/15/21 Time Last Intake of Fluids: 14:15 Last Intake of Fluids Comment: Sip of water with med Date Last Intake of Solids: 04/14/21 Past Medical History Medical History Anxiety Diabetes type 2, controlled NIDDM Dyslipidemia (high LDL; low HDL) History of anesthesia reaction combative, emotional History of nephrolithiasis Hypertension Right inguinal hernia Exercise / Class Metabolic Activity II 4-5 Yardwork/Stairs/Walk up hill Past Family History Family History Mother Kidney stones Myocardial infarction Heart disease Grandmother (Maternal) Myocardial infarction Heart disease Uncle Myocardial infarction Maternal Denies family history of Ovarian cancer Prostate cancer Breast cancer Colorectal cancer Past Surgical History Surgical History H/O umbilical hernia repair 2014 History of lithotripsy S/P shoulder replacement 2016 S/p total knee replacement, bilateral 2008 Past Anesthesia History No Hx of Anesthesia Complications and No Family Hx of Anesthesia Complications History of PONV No Hx of PONV and No Hx of Motion Sickness Social History Smoking Status: Former smoker Hx Alcohol Use: Yes alcohol intake frequency: a few times a month Hx Substance Use: Yes substance use type: marijuana Substance Use Type Other:: medical card newsome Last Used Substance Other:: 03/20 Physical Exam Vital Signs Last Vital Signs Temp 36.7 C 04/15/21 14:47 Pulse 62 04/15/21 14:47 Resp 16 04/15/21 14:47 BP 149/86 H 04/15/21 14:47 Pulse Ox 93 04/15/21 14:47 Testing Laboratory Results 04/14/21 22:51 04/14/21 22:51 Urine Color Yellow 04/15/21 Unknown Urine Appearance Turbid (Clear) A 04/15/21 Unknown Urine pH 7.5 (4.5-7.5) 04/15/21 Unknown Ur Specific [place] 1.019 (1.000-1.030) 04/15/21 Unknown Urine Protein 2+ (Negative) H 04/15/21 Unknown Urine Glucose (UA) 1+ (Negative) H 04/15/21 Unknown Urine Ketones Negative (Negative) 04/15/21 Unknown Urine Nitrite Negative (Negative) 04/15/21 Unknown Ur Leukocyte Esterase Negative (Negative) 04/15/21 Unknown Urine WBC (Auto) 1-5 /hpf (0-5) 04/15/21 Unknown Urine RBC (Auto) >30 /hpf (0-4) H 04/15/21 Unknown U Hyaline Cast (Auto) 1-5 /lpf (0-5) 04/15/21 Unknown U Epithel Cells (Auto) 20-30 /lpf (0-5) H 04/15/21 Unknown Urine Bacteria (Auto) Negative (Negative) 04/15/21 Unknown 04/15/21 04/15/21 12:28 10:20 POC Glucose 117 H 122 H
[2021-04-15] MEDS ORDERED: PROMETHAZINE HCL 12.5 MG in SODIUM CHLORIDE 0.9% 50 ML IV PRN (16:44)
[2021-04-15] MEDS ORDERED: FLUMAZENIL 0.1 MG/1 ML 10 ML VIAL IV PRN (16:44)
[2021-04-15] MEDS ORDERED: ATROPINE SULFATE 0.1 MG/ML 10ML SYR IV PRN (16:44)
[2021-04-15] MEDS ORDERED: NALOXONE HCL 0.4 MG/1 ML VIAL/CARP IV PRN (16:44)
[2021-04-15] MEDS ORDERED: LABETALOL HCL IV 5 MG/ML 20ML IV PRN (16:44)
[2021-04-15] MEDS ORDERED: ePHEDrine sulfate 50 MG/ML AMP IV PRN (16:44)
[2021-04-15] MEDS ORDERED: ONDANSETRON INJ 2 MG/ML 2 ML VIAL ONE (16:59)
[2021-04-15] MEDS ORDERED: PROPOFOL IV EMULSION 10 MG/ML 20 ML VIAL IV ONE ×3 (16:59→17:37)
[2021-04-15] MEDS ORDERED: fentaNYL citrate 100 MCG/2 ML VIAL ONE ×2 (17:00→17:31)
[2021-04-15] MEDS ORDERED: MIDAZOLAM HCL 1 MG/ML 2ML VIAL ONE (17:00)
[2021-04-15] MEDS ORDERED: KETAMINE 50 MG/5 ML SYRINGE ONE (17:15)
[2021-04-15] MEDS ORDERED: DIATRIZOATE MEGLUMINE 30% 100ML VIAL INSTIL ONE (17:16)
--- NOTE | 2021-04-15 17:38 | Post Operative Brief Note ---
PG Immediate Post Op with CF Date of Surgery April 15, 2021 Pre & Post Diagnosis Operation Date: 04/15/21 15:10 Pre-Op Diagnosis: Right Ureteral Calculus Post-Op Diagnosis: Right Ureteral Calculus I identified the patient and participated in the time-out.: Yes Procedure Operation Date: 04/15/21 15:10 Actual Procedures p Cystoscopy, Right Retrograde Pyelogram, Right Stent Insertion(Right) - Terrance Willis MD Surgeon Terrance Willis MD Environmental Compliance Inspector None Estimated Blood Loss 0 Findings Consistent with Post-Op Diagnosis Stent in good position Drains Other (6x26 R stent ) Complications None Disposition Accompanied Patient To Recovery: No Disposition: Recovery Room Overlapping Procedure I was present for: the critical portions of procedure.
--- NOTE | 2021-04-15 18:05 | Anesthesiology Progress Note ---
Date of Service April 15, 2021 Anesthesia Post Procedure Vital Signs Vital Signs: Temp Pulse Pulse Pulse Resp BP BP 04/15/21 17:47 36.1 C L 70 24 128/89 04/15/21 16:37 36.9 C 74 18 175/98 H 04/15/21 14:47 36.7 C 62 16 149/86 H 04/15/21 10:06 36.7 C 65 16 157/87 H 04/15/21 10:05 36.7 C 65 16 157/87 H 04/15/21 09:00 63 18 129/73 04/15/21 08:42 63 14 147/76 H 04/15/21 07:00 80 18 149/92 H 04/15/21 05:00 60 16 115/97 04/15/21 03:00 56 L 16 162/95 H 04/15/21 01:21 89 168/99 H 04/14/21 22:40 36.0 C L 85 24 152/82 H Pulse Ox 04/15/21 17:47 96 04/15/21 16:37 96 04/15/21 14:47 93 04/15/21 10:06 95 04/15/21 10:05 95 04/15/21 09:00 98 04/15/21 08:42 93 04/15/21 07:00 95 04/15/21 05:00 94 04/15/21 03:00 93 04/15/21 01:21 98 04/14/21 22:40 98 Pain Intensity Abdomen: Pain Intensity: 0 Transfer of Care Handoff Completed per policy Notes Mental Status: alert / awake / arousable Patient Amnestic to Procedure: Yes Nausea / Vomiting: adequately controlled Pain: adequately controlled Airway Patency, RR, SpO2: stable & adequate BP & HR: stable & adequate Hydration State: stable & adequate Anesthetic Complications: no major complications apparent
[2021-04-15] MEDS: fentaNYL citrate 100 MCG/2 ML VIAL IV PRN ×2 (18:11→18:19)
--- NOTE | 2021-04-15 18:14 | Fluoroscopy Report ---
FL retrograde includes kub CLINICAL HISTORY: Right ureteral stent placement COMPARISON STUDY: None. FLUOROSCOPY TIME: 30 seconds. FINDINGS: 4 fluoroscopic spot images of the abdomen and pelvis demonstrate retrograde opacification o f the right renal collecting system with moderate hydronephrosis. This is followed by placement of a right ureteral stent. Only the proximal portion of the stent is identified but appears in good positi on. IMPRESSION: Fluoroscopic assistance provided for right ureteral stent placement. ACT 112: Negative or not required by law. Electronically signed by: Jaydon Umaña M.D. 04/15/2021 6:13 PM
--- NOTE | 2021-04-15 19:00 | Operative Report ---
PG Post Operative Report Pre & Post Diagnosis Operation Date: 04/15/21 15:10 Pre-Op Diagnosis: Right Ureteral Calculus Post-Op Diagnosis: Right Ureteral Calculus I identified the patient and participated in the time-out.: Yes Procedure Operation Date: 04/15/21 15:10 Actual Procedures p Cystoscopy, Right Retrograde Pyelogram with radiographic interpretation, Right Stent Insertion(Right) - Terrance Willis MD Surgeon Terrance Willis MD Staple Side Laster None Estimated Blood Loss 0 Findings Consistent with Post-Op Diagnosis 1. Normal urethra and bladder. Moderately enlarged prostate with high bladder neck. 2. Right retrograde pyelogram shows significantly dilated right renal pelvis 3. Stent with good proximal and distal coil Specimens None Drains 6 Maltese by 26 cm right ureteral stent Anesthesia Type General Complications None Disposition Accompanied Patient To Recovery: No Disposition: Recovery Room Indications 50-year-old male with a right mid ureteral stone causing obstruction. Due to pain and nausea, opted for ureteral stent placement. White blood cell count was slightly elevated 14.6, creatinine was 1.37 and urinalysis was negative for nitrites, negative for leukocyte Estrace, 30+ RBCs, 1-5 WBCs and no bacteria. Description of Procedure After informed consent was obtained, the patient was transported operative suite. MAC anesthesia was induced. The patient was placed in dorsolithotomy position prepped and draped in a sterile fashion. They received preoperative Bactrim for antibiotic prophylaxis. An appropriate surgical timeout was performed. A 22 Maltese rigid scope was inserted per urethra into the bladder. Sanders cystoscopy revealed no stones or lesions. I turned my attention the right ureteral orifice and intubated this with a 5 Maltese open-ended catheter. A right retrograde pyelogram was shot which showed a significantly dilated right renal pelvis. A sensor wire was advanced into the kidney and confirmed fluoroscopically. A 6 Maltese by 26cm right ureteral stent was deployed with a good proximal coil in the renal pelvis and a good distal coil noted in the bladder, confirmed fluoroscopically and under direct visualization, respectively. The bladder was emptied and the scope was removed. This concluded the end of the case. All counts were correct at the end of the case. I was present, scrubbed, and actively participated for the entire to the procedure. Plan: 1. Stable for discharge home from a urologic perspective 2. Prescriptions for oxycodone and Flomax had previously been sent. I additionally sent Ditropan, Colace and 3 days of Bactrim. 3. Urology was sent a message scheduling follow-up in clinic to discuss stone treatment. I attest to the content of the Intraoperative Record and any orders documented therein. Any exceptions are noted below.
[2021-04-15] MEDS ORDERED: ATORVASTATIN 20 MG TAB PO SCH (21:00)
[2021-04-16 06:41] LABS: Basophils # (auto) 0.06 K/uL (0-0.2); Basophils % (auto) 0.7 %; Eosinophils # (auto) 0.16 K/uL (0-0.5); Eosinophils % (auto) 1.8 %; Hematocrit (blood only) 39.6 % (42-52); Hemoglobin 13.5 g/dL (14.0-18.0); Immature Granulocytes # (auto) 0.02 K/uL (0.00-0.02); Immature Granulocytes % (auto) 0.2 %; Lymphocytes # (auto) 1.38 K/uL (1.2-3.4); Lymphocytes % (auto) 15.7 %; Mean Corpuscular Hemoglobin 29.3 pg (25-34); Mean Corpuscular Hgb Conc 34.1 g/dL (32-36); Mean Corpuscular Volume 86.1 fL (80-100); Mean Platelet Volume 10.3 fL (7.4-10.4); Monocytes # (auto) 0.82 K/uL (0.11-0.59); Monocytes % (auto) 9.3 %; Neutrophils # (auto) 6.36 K/uL (1.4-6.5); Neutrophils % (auto) 72.3 %; Platelet Count 238 K/uL (130-400); RDW Coefficient of Variation 13.1 % (11.5-14.5); RDW Standard Deviation 41.6 fL (36.4-46.3)
[2021-04-16 07:13] LABS: BUN Creatinine Ratio 16.9 (10-20); Calcium 8.4 mg/dl (8.5-10.1); Creatinine Clr Calc Pharmacy 119.4 ml/min; Est GFR (African American) 113.9 ml/min; Est GFR (Non-African American) 98.3 ml/min; Potassium 3.5 mmol/L (3.5-5.1)
[2021-04-16] MEDS: ASPIRIN 81 MG ECTAB PO SCH (08:50)
[2021-04-16] MEDS: INSULIN ASPART 100 UNITS/ML 3 ML PEN SC SCH (08:51)
[2021-04-16] MEDS: INSULIN GLARGINE SOLOSTAR 100 UNITS/ML 3 ML PEN SC SCH (08:51)
--- NOTE | 2021-04-16 09:23 | Urology Progress Note ---
Date of Service April 16, 2021 Assessment & Plan (1) Right ureteral stone: Plan: Right kidney should be decompressed now with ureteral stent in place. His urinary symptoms (frequency and urgency, incomplete emptying) are almost certainly due to the stent. We discussed that he could try oxybutynin and Flomax to help with this. We discussed that he will need to have future procedures to remove the kidney stone. We will have him follow-up in the urology office in the next 1 to 2 weeks to coordinate this. At this point, nausea is most likely related to recent anesthesia. I suspect it will resolve within the next 24 hours. Reasonable to manage with Zofran for the time being. Plan: Okay for discharge home today from the urology perspective Would recommend Flomax and oxybutynin for urinary symptoms We will coordinate outpatient follow-up for stone management. Admission and Anticipated Discharge Date Admission Date: April 15, 2021 Subjective Mr. Lugo is s/p right ureteral stent placement on 04/15/21 for ureteral stone. He is having some urinary frequency and urgency from the stent, as well as a sense of incomplete emptying. He is having nausea when he sits up. Not having any significant pain. Review of Systems Review of Systems: no fevers/chills Gastrointestinal: nausea Genitourinary: + as per Subjective / HPI Physical Exam Physical Exam: resting in bed, uncomfortable, NAD Respiratory: breathing comfortably on room air. Results & Data ([facility]) Vital Signs (Past 12 Hours) Vital Signs Temp Pulse Resp BP Pulse Ox 04/16/21 07:20 36.5 C 57 L 16 144/84 H 95 04/16/21 03:03 36.7 C 62 16 164/87 H 98 04/15/21 21:30 36.5 C 55 L 16 190/100 H 93 Laboratory Results Normal WBC (8.80), Mild anemia (RBC 13.5). PG Care Time/CCT Total # of Minutes Spent Total Time Spent with Patient: Total time spent is greater than 50% in coordination of care (as documented) at patient's floor/unit and/or counseling patient: Coding Level of Care Code 86416 Subseq Hosp Care Lvl 1 Diagnoses Right ureteral stone N20.1
--- NOTE | 2021-04-16 10:33 | Discharge Summary ---
Date of Service April 16, 2021 Admission HPI Per Admitting Provider Yousuf Lugo is a 50-year-old male with past medical history of hyperlipidemia, type 2 diabetes mellitus not on insulin therapy, hypertension, and nephrolithiasis with past lithotripsy who presents with 1 day of right flank pain similar to his prior kidney stone. Yousuf reports he initially thought he was having trouble going to the bathroom, felt like he needed to go but couldnt. No dysuria/blood. Later in the evening was with family making dinner and around 9pm last night developed pain in the R back consistent with his prior episode of kidney stones. This will be his 5th or 6th kidney stone, was much worse (yearly) when he lived in [place]. Moved here in 1996. Has felt chilly then sweaty, has not checked temperature. Endorses nausea and vomiting, 1x vomiting at home nad 1x on the way here. No bloo dy/bilious emesis. Nausea improved with zofran, no completely but close. No diarrhea. No constipation. Medical History: Reviewed. Sees Leopoldo Stack. Has early CAD at time of T2DM diagnosis 2 years ago. Medications: Reviewed. Have not taken today or last night. Surgical History: Reviewed, hx of lithotrypsy, hernia repair. History of traumatic uretheral tear with cysto requiring a catheter placement for a 1 week. bilat total knee, shoulder repair. umbilical hernia repeat. Allergies: Reviewed. Adverse rxn to anethesia, has had agitation/delirium on recovery which passes. No hemodynamic compromise. Social History: No tobacco product use currently, 5-6 year cigarette sporadic use whil ein the . Rare social alcohol 1-2/wk. Medical marijuana card for anxiety/chronic pain. Code Status: Full Code Admission Exam Per Admitting Provider General: A&Ox3. NAD. Cooperative. Appears uncomfortable but nontoxic HEENT: Atraumatic, normocephalic. PERLAA. EoM intact. hearing/vision grossly intact. Pulm: CTAB A&P. -wheezes, -rales, -rhonchi. Symmetrical chest rise. No increase work of breathing. No respiratory distress. Cardiac: RRR, -mrg. Radial pulses intact and symmetrical. Abdominal: Trace diffuse abdominal tenderness without rebound or peritoneal signs, nondistended, soft. BS present. R flank pain Ext: Intact, atraumatic. Moving alison extremities equally. Sensation to soft touch and temp intact in hands and feet without deficit. PT/Radial pulses intact and symmetricla. Principal Diagnosis Nephrolithiasis with hydronephrosis Discharge Exam General: A&Ox3. NAD. Cooperative. HEENT: Atraumatic, normocephalic. PERLAA. EoM intact. hearing/vision grossly intact. Pulm: CTAB A&P. -wheezes, -rales, -rhonchi. Symmetrical chest rise. No increase work of breathing. No respiratory distress. Cardiac: RRR, -mrg. Radial pulses intact and symmetrical. Abdominal: Minimal abdominal tenderness without rebound or peritoneal signs, nondistended, soft. BS present. Mild R flank pain Ext: Intact, atraumatic. Moving alison extremities equally. Sensation to soft touch and temp intact in hands and feet without deficit. PT/Radial pulses intact and symmetrical. Discharge Data Allergies Allergy/AdvReac Type Severity Reaction Status Date / Time Penicillins Allergy Intermediate HIVES Verified 04/15/21 00:44 amoxicillin Allergy Mild hives Verified 04/15/21 00:44 Consultations 04/15/21 06:03 Consult Urology Stat 04/15/21 07:29 ED Decision to Admit Stat Procedures Performed Operation Date: 04/15/21 15:10 Actual Procedures p Cystoscopy, Right Retrograde Pyelogram, Right Stent Insertion(Right) - Terrance Willis MD Ordered Studies 04/14/21 23:28 CT abd pelvis IV con only Urgent 04/15/21 19:00 FL retrograde includes kub Routine Hospital Course (1) Nephrolithiasis: To do as outpatient: 1. Follow-up with urology after stent placement, and for definitive stone management 2. Complete 3 days of Bactrim per urology 3. Continue Flomax/oxybutynin per urology 4. Follow-up for outpatient cardiac stress test arranged by PCP, consider cardiology referral. See below, high risk with severe coronary calcium appreciated on CT. Nephrolithiasis status post stent placement CT A/P stat rad: Moderate right hydronephrosis with 8 mm calculus in the mid right ureter approximately 13 cm from UVJ. Nonobstructive 3 mm [place] calculus in the upper pole of right kidney, 1-2 mm calculus calculi in left kidney. Cardiomegaly and severe coronary calcifications noted. Fatty infiltration of liver with borderline hepatomegaly measuring 19 cm. There is a focal ill-defined 2 cm low-density in the right liver lobe without mass-effect. Gallbladder, pancreas, spleen, adrenal glands unremarkable. Diverticulosis through the left and sigmoid colon. No inflammatory changes in bowel appreciated. Appendix is normal. Urinary bladder is empty and unremarkable. Bilateral fat-containing inguinal hernias measuring up to 4.3 cm on left. No acute spinal fracture or traumatic subluxation is appreciated. Leukocytosis to 14.69 Afebrile Creatinine 1.37, within normal limits UA: Protein, blood present. Negative for ketones, leukocyte esterase, bacteria. No signs of superimposed UTI, defer antibiotics at this time Covid negative Urology consulted. 04/15 patient underwent cystoscopy with right pyelogram and right stent insertion, uncomplicated. Patient reserved overnight postoperatively and progressed well with improvement although incomplete resolution of pain. Patient experienced some urinary frequency and urgency and a sense of incomplete emptying postoperatively, likely due to his stent and was assessed by urology. Patient was stable for discharge and will follow up in the urology office within the next week with additional procedures to remove the stone which was still present at time of stent placement. Patient was discharged on Flomax and oxybutynin, short prescription for oxycodone for breakthrough pain (2) Diabetes type 2, controlled: Type 2 diabetes mellitus Hold home metformin, glimepiride Glucose checks AC/at bedtime Insulin glargine SSI Adequate glycemic control during admission (3) Hypertension: Hypertension Lisinopril was held perioperatively, and resumed on discharge - PT reasonable BP control, intermittent elevation with pain during admission Continue aspirin 81 mg daily (4) Dyslipidemia (high LDL; low HDL): Hyperlipidemia Continue atorvastatin (5) Heart disease: - Mother with 3x bipass at age 30 - Calcium deposits in coronaries noted on CT - Denies chest pain/pressure, exertional angina - No acute signs of ischemia, pt high risk and should have outpt followup Patient was discussed with cardiology. Given his calcium deposits appreciable on CD and his extremely high risk family history with his mother having bypass before age 40 it was recommended that patient follow-up as outpatient for a cardiac stress test. This was discussed with patient expressed understanding. No signs of ischemia during admission. Total Time Total Time Spent Total Time Spent (In Minutes): Total time spent coordinating discharge, documentation, direct patient care, and review labs and images on day of discharge 35 minutes. Discharge Plan Discharge Items Patient Disposition: Home - Self-Care Reason For Visit: NEPHROLITHIASIS, HYDROMEPHROSIS Discharge Diagnosis: Nephrolithiasis Hydronephrosis Activity: Resume your previous activity Non-emergency contact: Primary Care Provider and Urologist Call non-emergency contact if: you have any medication questions, your symptoms worsen, your pain is not controlled, your pain is worsening, your pain is unusual for you, your pain is concerning for you, you have a fever and your rectal temperature is above 100.4 Follow-up/Referrals: Leopoldo Warner CRNP [Primary Care Provider] - Patricio Mullen MD [Physician] - Diet: Regular Addtl Attending Provider Instructions: You are seen in the hospital for kidney stones, nephrolithiasis with evidence of hydronephrosis (kidney change due to backup of fluid). You did not show any signs of a urinary tract infection. You underwent ureteral stent placement with urology which remains in place. An appointment is being scheduled for you for follow-up with their office, and they have provided additional instructions below. You have been prescribed a medication, Flomax to help facilitate passing of urine. Please take Flomax 0.4 mg daily by mouth. A prescription for this was sent in advance of discharge and picked up by your . You have been prescribed a medication, oxybutynin. Please take oxybutynin 5 mg by mouth daily. You may pick this prescription up tomorrow. You have been prescribed a pain medication, oxycodone 5 mg which you may take up to every 8 hours as needed for pain. This may make you nauseous. Please take Tylenol 650 mg every 4-6 hours as needed for pain first, and only use oxycodone for additional severe untreated pain. Do not take more than 30 to 50 mg of Tylenol in any 24-hour. If you do not need/use the oxycodone, please bring this back to the pharmacy to have it disposed of by their staff. You did not show evidence of a urinary tract infection during admission. To help prevent infection following your procedure urology is prescribed an antibiotic, Bactrim for 3 days which is been sent to the pharmacy. Please take Bactrim twice daily for 3 days as noted below. Elevated coronary calcium was appreciated on your CAT scan. You also reported a strong family history of severe cardiac disease in your mother at a very young age. You are at increased risk for coronary disease, and while you did not show any signs of ischemia/heart attack during admission your case was discussed with cardiology and it was recommended that you be considered for a cardiac stress test as an outpatient. Your primary care provider can facilitate scheduling of this test, please discuss referral for a cardiac stress test at your follow-up appointment with your PCP within 2 weeks. A followup appointment is being scheduled for you with your PCP. You should be seen seen within 1-2 weeks. You should receive a call to confirm this appointment. If you do not receive a call within 48 hours to confirm this appointment, or need to change this appointment, please call the provider's office at [phone]. If you develop any new or worsening symptoms including fever, chills, sweats, chest pain, chest pressure, difficulty breathing, uncontrolled nausea/vomiting, rash, wheezing, passing out or nearly passing out, bleeding, black/bloody bowel movements, or other new or concerning symptoms please call your primary care physician at [phone], or call [phone] for re-evaluation in the emergency department if you are very concerned. Addtl Technology Education Instructor Provider Instructions: The surgery you had was ureteral stent placement. Please take all medications as prescribed and keep all follow-ups as scheduled. Please call our office at [phone] with any questions, concerns or need to reschedule appointments for any reason. We are happy to assist you. You have a ureteral stent in place. As long as the stent is in place, you may see some blood in the urine. You may have pain in your side when you urinate. We will call to arrange an office visit to discuss further stone management. When to call [facility] at [phone]: Fever of 101F or higher Heavy bleeding Pain that is not controlled with medicine Uncontrolled vomiting Problems urinating or inability to urinate Pending Studies at Discharge: No Stand-Alone Forms: [employer] Equipment, Smoking Cessation Medications and DC Order Prescriptions: New tamsulosin [Flomax] 0.4 mg capsule 0.4 mg PO DAILY 7 Days Qty: 7 RF: 1 oxycodone 5 mg tablet 5 mg PO Q8H PRN (Reason: pain) 3 Days Qty: 9 RF: 0 oxybutynin chloride [Ditropan XL] 5 mg tablet extended release 24hr 5 mg PO DAILY Qty: 30 RF: 0 docusate sodium [Col-Rite] 100 mg capsule 100 mg PO BID Qty: 20 RF: 0 sulfamethoxazole-trimethoprim [Bactrim DS] 800-160 mg tablet 1 tab PO BID Qty: 6 RF: 0 No Action atorvastatin 20 mg tablet 20 mg PO QPM Qty: 30 RF: 2 aspirin 81 mg tablet,delayed release (DR/EC) 81 mg PO DAILY Qty: 30 RF: 2 betamethasone valerate 0.1 % cream 1 applic topical BID PRN (Reason: skin irritation) Qty: 45 RF: 2 glimepiride 4 mg tablet 4 mg PO QAM Qty: 90 RF: 1 metformin 500 mg tablet 500 mg PO BID Qty: 180 RF: 3 sildenafil 50 mg tablet 50 mg PO DAILY PRN (Reason: sexual activity) Qty: 30 RF: 3 lisinopril 10 mg tablet 10 mg PO QAM Qty: 90 RF: 1 cholecalciferol (vitamin D3) [Vitamin D3] 25 mcg (1,000 unit) Capsule 0 mcg PO DAILY RF: 0 Discharge Orders: Discharge Order (Routine); Ordered 04/16/21 Ordered By: Bryce Redmond Admission Data Admit Date/Time: 04/15/21 08:29 Attending Provider: Bryce Redmond Admit Provider: Bryce Redmond Primary Care Provider: Leopoldo Warner Other Providers: Patricio Mullen ; Bryce Redmond Coding Level of Care Code D/C DAY MANAGEMENT >30 MINS Diagnoses Nephrolithiasis N20.0 Diabetes type 2, controlled E11.9 Hypertension I10 Dyslipidemia (high LDL; low HDL) E78.5 Heart disease I51.9
[2021-04-17 06:27] LABS: Estimated Average Glucose 146 mg/dl; Hemoglobin A1C 6.7 % (4.5-5.6)
== END 2021-04-16 12:17 | disposition home or self-care (01) | DRG 660 ==
LOC: ED 22:39 → 3E 04-15 08:29
DX: F41.9 Anxiety disorder, unspecified; E78.5 Hyperlipidemia, unspecified; D72.829 Elevated white blood cell count, unspecified; E11.9 Type 2 diabetes mellitus without complications; Z82.49 Family history of ischemic heart disease and other diseases of the circulatory system; I51.9 Heart disease, unspecified; N20.1 Calculus of ureter; Z88.1 Allergy status to other antibiotic agents; N13.30 Unspecified hydronephrosis; Z88.0 Allergy status to penicillin